=== PATIENT | female | born 1975 | race Caucasian/White ===

== ENCOUNTER 2018-01-09 14:06 | Emergency (ER) | payer BC ==
[2018-01-09 14:11] VITALS: BMI 32.5
[2018-01-09] MEDS ORDERED: TORADOL 30 MG VIAL IVP ONE (14:16)
[2018-01-09] MEDS ORDERED: DILAUDID INJ IVP ONE (14:16)
[2018-01-09] MEDS ORDERED: ZOFRAN INJ 4 MG VIAL IVP ONE (14:18)
[2018-01-09] MEDS ORDERED: DECADRON INJ IV ONE (14:21)
--- NOTE | 2018-01-09 14:21 | DR.FBACK ---
HPI - Time Seen Time seen: 14:20 - PCP Primary Care Physician: Noemy Platt - HPI Comment HPI Comment: hx back pain previously. had MRI 2016, I reviewed report. Spon onset severe low back pain today with rad down both legs. Was in PCP office 4 days ago, got steroid shot for same, unknown med or dose and office closed now. Rx'd ibuprofen and flexeril which has not helped. - Complaint Chief Complaint:: Patient c/o lower back pain that radiates down both legs. Patient states "Noemy told me I had a bad back and I have had xrays done here. I stood up alot this and Noemy gave me a steroid shot friday." Patient is unable to sit without grimacing Self Treatment fo Chief Complaint: Steroid shot friday - Reviewed Nurses Notes Review: Yes - Source History Provided: Patient - Mode of Arrival Mode of Arrival: Ambulatory - Timing Onset of Chief Complaint: 01/04/18 - Duration Duration: Since Onset - Location Back Pain Location: BACK, Lumbar Radiation To: Right, Left, Buttock, Thigh - Severity Severity: Severe - Quality Quality: Sharp - Context Onset: Spontaneous Circumstance: Unknown History of: Chronic Back Pain - Modifying Factors Worsened By: Movement, Walking PMH - PMH Past Medical History: Yes Past Medical History: Anxiety, Arthritis, Diabetes, GERD, Hypertension Past Surgical History: Yes Surgical History: 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, 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 - Family History History of Family Medical Conditions: Yes Family Medical History: Diabetes Mellitus, Hypertension - Social History Does patient currently use any type of tobacco product: No Have you used tobacco products in the last 12 months: No Type of Tobacco Use: None Does any household member use tobacco: No Alcohol Use: None Do you use any recreational Drugs:: No Lives With: Family Lives Where: Home - infectious screening In the last 2 months have you had wt loss of >10#?: NO Have you had fever, night sweats or hemotysis?: No Have you traveled outside the country in the last 6 months?: No Isolation: Standard ROS - Review of Systems Constitutional: No Symptoms Reported Eyes: No Symptoms Reported ENTM: No Symptoms Reported Respiratoy: No Symptoms Reported Cardiovascular: No Symptoms Reported Gastrointestinal/Abdominal: No Symptoms Reported Neurological: Problems Walking Musculoskeletal: Back Pain Integumentary: No Symptoms Reported Hematologic/Lymphatic: No Symptoms Reported Endocrine: No Symptoms Reported Psychiatric: No Symptoms Reported All Other Systems: Reviewed and Negative PE - Vitals Vital Signs: Pulse Resp BP BP BP Pulse Ox 01/09/18 15:06 153/79 01/09/18 14:41 177/103 01/09/18 14:07 112 H 22 230/125 100 06/28/16 12:00 148/90 148/90 06/28/16 00:00 88/50 - General Limitations: No Limitations General Appearance: Alert, In Distress (mild distress due to low back pain. Bp elevated on arrival) - Head Head Exam: Normal Inspection, Atraumatic, Normocephalic - Eyes Eye exam: Normal Appearance - ENT ENT Exam: Normal Exam - Chest Chest Inspection: Normal Inspection - Respiratory Respiratory Exam: Normal Lung Sounds Bilat Respiratory Exam: Bilateral Clear to Auscultation - Cardiovascular Cardiovascular Exam: Regular Rate, Normal Rhythm, Normal Heart Sounds - Abdominal Exam Abdominal Exam: Normal Inspection, Normal Bowel Sounds, Soft - Extremities Extremities Exam: Normal Inspection, Full ROM - Back Back Exam: Other (+TTP Lspine generally. SLR not done due to pt discomfort) - Neurological Neurological Exam: Alert, Oriented X3 - Psychiatric Psychiatric Exam: Normal Affect, Normal Mood - Skin Skin Exam: Warm, Dry, Normal Color ROR - XRAY XRAY Interpreted by: Radiologist XRAY Findings: CT Lspine no definitte acute - Diagnosis Discharge Problem: Sciatic leg pain - Discharge Plan Disposition: 01 HOME, SELF-CARE Condition: Stable Prescriptions: Hydrocodone-Acet 7.5 mg/325 mg [[place] 7.5/325 mg Tab] 1 tab PO Q6H PRN #15 tab PRN Reason: Pain - Follow ups/Referrals Follow ups/Referrals: NOEMY PLATT [Primary Care Provider] - 3 days - Instructions Instructions: Sciatica, Back Exercises, [id number] Additional Notes - Additional Notes Additional Notes: asked pt to f/u PCP re: repeat MRI vs myelogram. Will give pain control meds in ER incl more steroids. Symptoms classic for bilat sciatica. CT imaging today showed nothing acute. Some but incomplete relief with multiple pain meds. Pt agrees this just has to settle down. Will d/c home with pain meds, f/u PCP 01/12 for ortho referral.
[2018-01-09] MEDS ORDERED: DILAUDID INJ ONE (14:24)
[2018-01-09] MEDS ORDERED: ZOFRAN INJ 4 MG VIAL ONE (14:24)
[2018-01-09] MEDS ORDERED: TORADOL 30 MG VIAL ONE (14:24)
[2018-01-09] MEDS ORDERED: DECADRON INJ ONE (14:24)
[2018-01-09 15:06] VITALS: BP 153/79
--- NOTE | 2018-01-09 16:02 | CT ---
Indication: Back pain Exam: CT scan lumbar spine without contrast Technique: Axial spiral images were obtained from the T10 level through the lower sacrum and reconstr ucted in the axial plane at 2 mm intervals with coronal and sagittal multiplanar reconstructions perf ormed. Findings: The lumbar vertebra are well aligned. There is mild to moderate disc space narrowing throug hout with mild marginal osteophytes throughout. No fracture or subluxation is seen. The vertebral bod y height is well maintained throughout. There is mild narrowing along the right SI joint with mild sc lerosis along the adjacent right iliac wing . The lung bases are clear. There is a small central disc bulge at L5-S1. The neural foramina clear. The paravertebral soft tissues are normal. The gallbladde r has been removed. There is some ill-defined focal hyperdense calcific densities in the along the pa pillary regions of both kidneys . No hydronephrosis or renal masses are seen. There is mild scoliosis . There are mild hypertrophic changes of facets throughout with ligament flavum hypertrophy causing d iffuse mild spinal stenosis. No pars defects are seen. Impression: Mild to moderate degenerative disc changes throughout and mild scoliosis with no acute abnormality se en Small central disc bulge at L5-S1 Mild osteoarthritic changes of facets throughout causing diffuse mild spinal stenosis Questionable mild asymmetric sacroiliitis or osteoarthritis along the right SI joint. Recommend clini ruddy follow-up. 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 Recommend clinical follow-up paragraphs Reported By:
[2018-01-09] MEDS ORDERED: OFIRMEV IV 1000 MG VIAL 1,000 MG/100 ML VIAL IV STA (16:03)
== END 2018-01-09 17:44 | disposition home or self-care (01) ==
LOC: ER 14:16
DX: M54.42 Lumbago with sciatica, left side (principal); M51.36 Other intervertebral disc degeneration, lumbar region
CPT/HCPCS: 72131; 96365; 96374; 96375; 99282; 99283; A4222; J1100; J1170; J1885; J2405

== ENCOUNTER 2019-02-01 14:45 | Observation (INO) ==
[2019-02-01] MEDS ORDERED: APRESOLINE INJ 20 MG VIAL IVP PRN (15:39)
[2019-02-01 15:58] VITALS: BMI 34.0
[2019-02-01] MEDS ORDERED: LEVAQUIN PREMIX IV 750 MG 750 MG/150 ML BAG IV SCH (16:00)
[2019-02-01] MEDS: PULMICORT NEB TX 0.5 MG NEB SCH ×2 (16:00→22:30)
[2019-02-01 16:14] LABS: BASOPHILS % (AUTO) 0.4 % (0.2-1.0); EOSINOPHILS # (AUTO) 0.3 x10^3/uL (0.0-0.2); EOSINOPHILS % (AUTO) 2.4 % (0.9-2.9); LYMPHOCYTES % (AUTO) 17.3 % (21.0-51.0); MEAN CORPUSCULAR HEMOGLOBIN 28.3 pg (27.0-34.0); MEAN CORPUSCULAR HGB CONC 33.4 g/dL (33.0-35.0); MEAN CORPUSCULAR VOLUME 84.8 fL (80.0-100.0); MEAN PLATELET VOLUME 7.9 fL (7.4-11.0); MONOCYTES # (AUTO) 0.7 x10^3/uL (0.3-0.8); MONOCYTES % (AUTO) 5.8 % (0.0-13.0); NEUTROPHILS # (AUTO) 8.6 x10^3/uL (2.2-4.8); NEUTROPHILS % (AUTO) 74.1 % (42.0-75.0); PLATELET COUNT 283 X10^3/uL (150.0-450.0); RED BLOOD COUNT 4.95 X10^6/uL (3.5-5.4); RED CELL DISTRIBUTION WIDTH 15.1 % (11.6-16.5); WHITE BLOOD COUNT 11.6 X10^3/uL (3.6-10.0)
[2019-02-01] MEDS: ROBITUSSIN DM PO SCH ×2 (16:20→20:54)
[2019-02-01] MEDS: ROCEPHIN VIAL 1 GRAM IVP SCH (16:20)
[2019-02-01] MEDS: NS 1000 ML 1,000 ML IV SCH (16:20)
[2019-02-01] MEDS: SOLU-Medrol 125 MG VIAL IVP SCH ×2 (16:20→20:59)
[2019-02-01 16:37] LABS: ALANINE AMINOTRANSFERASE 83 Units/L (12-78); ALBUMIN 3.9 g/dL (3.4-5.0); ALKALINE PHOSPHATASE 102 Units/L (46-116); ASPARTATE AMINO TRANSFERASE 43 Units/L (15-37); BLOOD UREA NITROGEN 12 mg/dL (7-18); CALCIUM 9.3 mg/dL (8.5-10.1); CHLORIDE 101 mmol/L (98-107); CKMB % 0.9 % (<4); COR NA(FOR HYPERGLY) 138 mmol/L (136-145); CREATINE KINASE 118 Units/L (26-192); CREATINE KINASE MB < 1.0 ng/mL (0-4.0); CREATININE 0.81 mg/dL (0.55-1.02); MAGNESIUM 1.8 mg/dL (1.7-2.9); SODIUM 137 mmol/L (136-145); TOTAL PROTEIN 7.7 g/dL (6.4-8.2); TROPONIN I < 0.02 ng/mL (0-1.5); eGFR NON BLACK RACES > 60 (>60)
[2019-02-01] MEDS ORDERED: SALINE 3% 15 ML NEB TX NEB ONE (16:41)
[2019-02-01] MEDS: TUSSIONEX PENNKINETIC SUSP PO PRN (16:44)
--- NOTE | 2019-02-01 16:58 | DR.H&P ---
H&P - History & Physical for Day of: H&P Date: 02/01/19 - Chief Complaint Chief Complaint: SOB, CHEST PAIN, COUGH, "FEEL LIKE ELEPHANT IS SITTING ON MY CHEST" - History of Present Illness History of Present Illness: 43 [address] HWANG OFFICE WITH CO SICK WITH SOB FOR 2-3 WEEKS, HAS GRADUALLY WORSENED. PT CO ELEVATED BP AND HAS BEEN TAKING ALL PRESCRIPTION MEDICATION. PT HAS HOARSE VOICE WITH COUGH, "BRONCHITIS". PT HAS BEEN USING DUO NEBS AT HOME BUT CO FEELING LIKE SOMETHING IS SITTING ON HER CHEST. PT HAS HAD ELEVATED BLOOD PRESSURE, IN OFFICE 150/115 AND CO BOTH ARMS FEELING HEAVING, NUMBNESS IN HANDS THAT COMES AND GOES. PT HAS PMH OF DM, BS HAS BEEN CONTROLLED. PT ADMITTED FOR TREATMENT AND EVALUATION OF SOB, CP, BRONCHITIS. - Past Medical History Past Medical History: Anxiety, Arthritis, Diabetes, GERD, Hypertension - Past Surgical History Surgical History: 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, HEAD CHEF Surgery - Family History Family Medical History: Diabetes Mellitus, Hypertension - Social History Does patient currently use any type of tobacco product: No Have you used tobacco products in the last 12 months: No Type of Tobacco Use: Cigarettes Does any household member use tobacco: No Alcohol Use: None Drug Use: None - Medications Home Medications: No Known Drug Allergies Allergy (Verified 02/01/19 15:35) - Review of Systems Constitutional: Weakness, Malaise Eyes: No Symptoms Reported ENT: No Symptoms Reported Respiratory: Cough, Shortness of Breath, SOB with Excertion Cardiovascular: Chest Pain, Light Headedness Gastrointestinal: Nausea Genitourinary: No Symptoms Reported Musculoskeletal: Back Pain Skin: No Symptoms Reported Neurological: Weakness - Physical Exam Vital Signs: Temperature 98.6 F Pulse Rate [Left Brachial] 98 Respiratory Rate 20 Blood Pressure [Left Arm] 158/96 Blood Pressure [Right Arm] 88/50 Blood Pressure 153/79 O2 Sat by Pulse Oximetry 99 Oriented: Normal Eyes: Normal Ear: Normal Nose: Normal Throat: Normal Respiratory: Rhonchi Throughout, RLL Diminished, LLL Diminished Cardiovascular: Tachycardia : Normal Auscultation: Bowel Sounds: Normal Palpation: Normal Tenderness: Normal Skin: Decreased Turgur Musculoskeletal: Right, Left, Hand, Back:Lumbar, Sensory Deficit Psychiatric: Anxiety Affect: Anxious Speech Pattern: Clear, Appropriate - Assessment/Plan (1) Chest pain Status: Acute Plan: ADMIT SERIAL CE, EKG. BP AND BS CONTROL. CARDIAC MONITORING. SUPPLEMENTAL O2, PNEUMONIA PROTOCOL. PRN HYDRALAZINE, D DIMER (2) SOB (shortness of breath) Status: Acute (3) SOB (shortness of breath) on exertion Status: Acute (4) Hypertensive urgency Status: Acute (5) Diabetes Qualifiers: Diabetes mellitus type: type 2 Status: Chronic (6) Degenerative lumbar spinal stenosis Status: Chronic - Allergies Allergies/Adverse Reactions: Allergies Allergy/AdvReac Type Severity Reaction Status Date / Time No Known Drug Allergies Allergy Verified 02/01/19 15:35
--- NOTE | 2019-02-01 17:04 | RAD ---
History: Neck pain radiating into the upper extremity Exam: Five view cervical spine series Comparison: None Technique: AP, lateral, oblique and open-mouth views were obtained. Findings: There is mild disc space narrowing throughout. No fracture or subluxation is seen. The prevertebral soft tissues are normal. The atlantoaxial joint is intact. The neural foramina clear and the posterior elements are intact. IMPRESSION: Minimal degenerative disc changes throughout the lower cervical spine with no acute abnormality seen. Reported By:
--- NOTE | 2019-02-01 17:05 | RAD ---
History: Shortness of breath Exam: Chest x-ray Comparison: 06/25/2016 Technique: PA and lateral Findings: The heart is normal. The pulmonary vessels are normal . The lungs are mildly hyperinflated. No consolidation or effusion is seen. The bones are intact. IMPRESSION: Stable chest with no acute abnormality seen. Reported By:
--- NOTE | 2019-02-01 19:20 | CT ---
CT angiogram chest with contrast Indication: Cough and dyspnea Technique: Helical images through the chest after IV contrast. Coronal and sagittal reformats provided. MIP images provided Comparison: 06/25/2016 CT Findings: Limited images through the upper abdomen show no unexpected abnormality. Review of bone windows shows no destructive osseous lesion. Is Chest: Aortic arch branch vessels are patent. Heart size is normal. Pulmonary artery bolus timing is slightly suboptimal without large central or segmental pulmonary artery filling defect identified. Subsegmental vessels less well seen. There is no pneumothorax, effusion or consolidation. Right lower lobe calcified granuloma noted. Tiny left upper lobe 2 mm multi pulmonary nodule seen on axial image 24. Pleural based nodule seen on axial image 54 measures 2 mm. Similar 2 mm nodule on axial image 61 is pleural based and measures 2 mm. Impression: 1. Mildly limited study shows no large central or segmental pulmonary embolus. Subsegmental vessels less well evaluated. 2. Few small scattered 2 mm pulmonary nodules are probably granulomatous. The patient is high risk (i.e. Smoking history), per Fleischner criteria, 12 month follow-up should be considered. Reported By:
[2019-02-01 20:24] LABS: ABG BASE EXCESS -0.1 mmol/L (-2.0-2.0); ABG HCO3 23.9 mmol/L (22-26)
[2019-02-01 20:25] LABS: ABG ALLEN TEST POS
[2019-02-01] MEDS: HumuLIN R SUBCUT PRN (20:51)
[2019-02-01] MEDS: SNACK - Diabetic Appropriate PO SCH (20:54)
[2019-02-01] MEDS: TYLENOL 325 MG TAB PO PRN (20:55)
[2019-02-01] MEDS: AMBIEN PO PRN (20:55)
[2019-02-01] MEDS ORDERED: LEVSIN/MAALOX/LIDOC VISC PO ONE (21:00)
[2019-02-01 21:47] LABS: BILIRUBIN,URINE NEGATIVE (NEGATIVE); BLOOD/HEMOGLOBIN,URINE NEGATIVE (NEGATIVE); GLUCOSE, URINE NEGATIVE (NEGATIVE); KETONES,URINE NEGATIVE (NEGATIVE); LEUKOCYTE ESTERASE ,URINE NEGATIVE (NEGATIVE); NITRITES,URINE NEGATIVE (NEGATIVE); PROTEIN,URINE NEGATIVE (NEGATIVE); UROBILINOGEN,URINE NORMAL (NORMAL)
[2019-02-01 21:54] LABS: APPEARANCE,URINE CLEAR (CLEAR); COLOR,URINE YELLOW (YELLOW)
[2019-02-01 22:11] LABS: CKMB % 0.9 % (<4); CREATINE KINASE 110 Units/L (26-192); CREATINE KINASE MB < 1.0 ng/mL (0-4.0); TROPONIN I < 0.02 ng/mL (0-1.5)
[2019-02-01] MEDS: PROVENTIL NEB TX 0.083% 2.5MG/ 3ML NEB SCH (22:30)
[2019-02-02] MEDS: TUSSIONEX PENNKINETIC SUSP PO PRN ×2 (03:58→21:27)
[2019-02-02 04:10] LABS: BASOPHILS % (AUTO) 0.2 % (0.2-1.0); HEMATOCRIT 41.4 % (36.0-47.0); HEMOGLOBIN 13.4 g/dL (12.0-16.0); LYMPHOCYTES # (AUTO) 0.8 X10^3/uL (1.3-2.9); LYMPHOCYTES % (AUTO) 5.7 % (21.0-51.0); MEAN CORPUSCULAR HGB CONC 32.3 g/dL (33.0-35.0); MEAN CORPUSCULAR VOLUME 86.8 fL (80.0-100.0); MEAN PLATELET VOLUME 8.6 fL (7.4-11.0); MONOCYTES # (AUTO) 0.1 x10^3/uL (0.3-0.8); MONOCYTES % (AUTO) 1.1 % (0.0-13.0); NEUTROPHILS # (AUTO) 12.2 x10^3/uL (2.2-4.8); PLATELET COUNT 298 X10^3/uL (150.0-450.0); RED BLOOD COUNT 4.77 X10^6/uL (3.5-5.4); RED CELL DISTRIBUTION WIDTH 14.8 % (11.6-16.5); WHITE BLOOD COUNT 13.2 X10^3/uL (3.6-10.0)
[2019-02-02 04:27] LABS: ALANINE AMINOTRANSFERASE 76 Units/L (12-78); ALBUMIN 3.7 g/dL (3.4-5.0); ALKALINE PHOSPHATASE 104 Units/L (46-116); ASPARTATE AMINO TRANSFERASE 31 Units/L (15-37); BLOOD UREA NITROGEN 11 mg/dL (7-18); CALCIUM 8.9 mg/dL (8.5-10.1); CARBON DIOXIDE 21.7 mmol/L (21-32); CHLORIDE 98 mmol/L (98-107); COR NA(FOR HYPERGLY) 140 mmol/L (136-145); CREATINE KINASE 103 Units/L (26-192); CREATINE KINASE MB < 1.0 ng/mL (0-4.0); CREATININE 1.18 mg/dL (0.55-1.02); SODIUM 134 mmol/L (136-145); TOTAL PROTEIN 7.4 g/dL (6.4-8.2); TROPONIN I < 0.02 ng/mL (0-1.5); eGFR NON BLACK RACES 53 (>60)
[2019-02-02 04:45] LABS: BAND NEUTROPHILS % 4 % (0-10); PLATELET MORPHOLOGY COMMENT NORMAL (NORMAL)
[2019-02-02] MEDS: SOLU-Medrol 125 MG VIAL IVP SCH (05:29)
[2019-02-02] MEDS: NS 1000 ML 1,000 ML IV SCH ×3 (05:29→20:05)
[2019-02-02] MEDS: HumuLIN R SUBCUT PRN ×4 (05:33→21:30)
[2019-02-02] MEDS: TYLENOL 325 MG TAB PO PRN ×2 (06:21→16:45)
[2019-02-02] MEDS: PROVENTIL NEB TX 0.083% 2.5MG/ 3ML NEB SCH (08:29)
[2019-02-02] MEDS: PULMICORT NEB TX 0.5 MG NEB SCH ×2 (08:29→20:02)
[2019-02-02] MEDS: ROBITUSSIN DM PO SCH ×4 (09:02→21:27)
[2019-02-02] MEDS: LEVAQUIN PREMIX IV 500 MG 500 MG/100 ML BAG IV SCH (09:02)
[2019-02-02] MEDS: ROCEPHIN VIAL 1 GRAM IVP SCH (09:03)
[2019-02-02] MEDS: Atrovent NEB TX 0.02% NEB SCH ×3 (12:08→20:02)
[2019-02-02] MEDS: MUCOMYST 20% 200 MG/ML NEB SCH ×3 (12:09→20:02)
[2019-02-02] MEDS ORDERED: AMLODIPINE OLMESARTAN PO SCH (14:00)
[2019-02-02] MEDS ORDERED: HYDROCHLOROTHIAZIDE 12.5 MG PO SCH (14:00)
--- NOTE | 2019-02-02 14:02 | PCM.PROG ---
Progress Note - Progress Note for Day of Date of Exam: 02/02/19 - Subjective Subjective: 43 W[address] FROM [address] HWANG OFFICE ON 02/01 WITH CO CHEST PAIN/PRESSURE SOB, UPPER EXTREMITY PARESTHESIAS. PT WAS STARTED ON IV ATBX THERAPY, IV STEROIDS, PNEUMONIA PROTOCOL, PT REPORTS NOT SLEEPING ALL NIGHT DUE TO STEROIDS., HYPERGLYCEMIA THIS AM, D/C IV SOLU MEDROL, CONTINUE WITH SSI. PT HAD CTA RESULTING- Few small scattered 2 mm pulmonary nodules are probably granulomatous. DISCUSSED NEED FOR FOLLOW UP IMAGING. PT CO THICK YELLOW SPUTUM PRODUCTION. ADDED SMART VEST AND RESUMED HOME BP MEDICATION. CONTINUES TO HAVE EPISODES OF CHEST TIGHTNESS - Past Medical Family Social History Past Med/Fam/Surg Hx: No changes since H&P Allergies: Allergies No Known Drug Allergies Allergy (Verified 02/01/19 15:35) - Review of Systems ROS: No change since H&P - Vital Signs and I&O's Vital Signs: Temperature 97.8 F Pulse Rate [Left Brachial] 100 Pulse Rate 62 Respiratory Rate 20 Blood Pressure [Left Arm] 115/55 Blood Pressure [Right Arm] 88/50 Blood Pressure 153/79 O2 Sat by Pulse Oximetry 97 Intake and Output: Intake & Output 01/31/19 02/01/19 02/02/19 02/03/19 11:59 11:59 11:59 11:59 Intake Total 2388 / 2388 Balance 2388 / 2388 - Physical Exam Oriented: Normal Eyes: Normal Ear: Normal Nose: Normal Throat: Normal Respiratory: Diminished, Wheezes, Rhonchi Cardiovascular: Tachycardia : Normal Auscultation: Bowel Sounds: Normal Tenderness: Normal Skin: Decreased Turgur Musculoskeletal: Right, Left, Hand, Back:Lumbar, Sensory Deficit Psychiatric: Anxiety Affect: Anxious Speech Pattern: Clear, Appropriate - Laboratory and Diagnostics Result Diagrams: 02/02/19 03:50 02/02/19 03:50 Labs: 02/01/19 17:50 Sputum - Expectorated Sputum Sputum Culture - Preliminary 02/01/19 17:50 Sputum - Expectorated Sputum - Final Laboratory WBC 13.2 X10^3/uL (3.6-10.0) H 02/02/19 03:50 RBC 4.77 X10^6/uL (3.5-5.4) 02/02/19 03:50 Hgb 13.4 g/dL (12.0-16.0) 02/02/19 03:50 Hct 41.4 % (36.0-47.0) 02/02/19 03:50 MCV 86.8 fL (80.0-100.0) 02/02/19 03:50 MCH 28.0 pg (27.0-34.0) 02/02/19 03:50 MCHC 32.3 g/dL (33.0-35.0) L 02/02/19 03:50 RDW 14.8 % (11.6-16.5) 02/02/19 03:50 Plt Count 298 X10^3/uL (150.0-450.0) 02/02/19 03:50 Plt Count Comment Adequate (ADEQUATE) 02/02/19 03:50 MPV 8.6 fL (7.4-11.0) 02/02/19 03:50 Neut % (Auto) 93.0 % (42.0-75.0) H 02/02/19 03:50 Lymph % (Auto) 5.7 % (21.0-51.0) L 02/02/19 03:50 Cotton % (Auto) 1.1 % (0.0-13.0) 02/02/19 03:50 Eos % (Auto) 0.0 % (0.9-2.9) L 02/02/19 03:50 Baso % (Auto) 0.2 % (0.2-1.0) 02/02/19 03:50 Neut # (Auto) 12.2 x10^3/uL (2.2-4.8) H 02/02/19 03:50 Lymph # (Auto) 0.8 X10^3/uL (1.3-2.9) L 02/02/19 03:50 Cotton # (Auto) 0.1 x10^3/uL (0.3-0.8) L 02/02/19 03:50 Eos # (Auto) 0.0 x10^3/uL (0.0-0.2) 02/02/19 03:50 Baso # (Auto) 0.0 X10^3/uL (0.0-0.1) 02/02/19 03:50 Absolute Nucleated RBC 0.0 /100WBC 02/02/19 03:50 Total Counted 100 02/02/19 03:50 Neutrophils % (Manual) 86 % (39-76) H 02/02/19 03:50 Band Neutrophils % 4 % (0-10) 02/02/19 03:50 Lymphocytes % (Manual) 8 % (13-43) L 02/02/19 03:50 Monocytes % (Manual) 1 % (4-9) L 02/02/19 03:50 Atypical Lymphocytes 1 02/02/19 03:50 Plt Morphology Comment Normal (NORMAL) 02/02/19 03:50 RBC Morphology Normal (NORMAL) 02/02/19 03:50 D-Dimer 421 ng/mL (0-400) H* 02/01/19 15:51 Sample Site Rrad 02/01/19 20:15 ABG pH 7.430 (7.35-7.45) 02/01/19 20:15 ABG pCO2 36.0 mmHg (35.0-45.0) 02/01/19 20:15 ABG pO2 73.0 mmHg (80.0-100.0) L 02/01/19 20:15 ABG HCO3 23.9 mmol/L (22-26) 02/01/19 20:15 ABG O2 Saturation 95.0 % (90-100) 02/01/19 20:15 ABG Base Excess -0.1 mmol/L (-2.0-2.0) 02/01/19 20:15 Bruno Test Pos 02/01/19 20:15 A-a Gradient 32.0 mmHg 02/01/19 20:15 FiO2 21.0 02/01/19 20:15 Blood Gas Comments Pt crys well elj 02/01/19 20:15 Sodium 134 mmol/L (136-145) L 02/02/19 03:50 Corrected Sodium 140 mmol/L (136-145) 02/02/19 03:50 Potassium 3.8 mmol/L (3.5-5.1) 02/02/19 03:50 Chloride 98 mmol/L (98-107) 02/02/19 03:50 Carbon Dioxide 21.7 mmol/L (21-32) 02/02/19 03:50 BUN 11 mg/dL (7-18) 02/02/19 03:50 Creatinine 1.18 mg/dL (0.55-1.02) H 02/02/19 03:50 Est GFR (MDRD) Af Amer > 60 (>60) 02/02/19 03:50 Est GFR (MDRD) Non-Af 53 (>60) L 02/02/19 03:50 Glucose 347 mg/dL (65-99) H 02/02/19 03:50 Calcium 8.9 mg/dL (8.5-10.1) 02/02/19 03:50 Corrected Calcium TNP 02/02/19 03:50 Magnesium 1.8 mg/dL (1.7-2.9) 02/01/19 15:51 Total Bilirubin 0.40 mg/dL (0.2-1.0) 02/02/19 03:50 AST 31 Units/L (15-37) 02/02/19 03:50 ALT 76 Units/L (12-78) 02/02/19 03:50 Alkaline Phosphatase 104 Units/L (46-116) 02/02/19 03:50 Creatine Kinase 103 Units/L (26-192) 02/02/19 03:50 CK-MB (CK-2) < 1.0 ng/mL (0-4.0) 02/02/19 03:50 CK/CKMB % Calc 1.0 % (<4) 02/02/19 03:50 Troponin I < 0.02 ng/mL (0-1.5) 02/02/19 03:50 Total Protein 7.4 g/dL (6.4-8.2) 02/02/19 03:50 Albumin 3.7 g/dL (3.4-5.0) 02/02/19 03:50 Globulin 3.7 g/dL (2.5-4.5) 02/02/19 03:50 Albumin/Globulin Ratio 1.0 Ratio (1.1-2.1) L 02/02/19 03:50 Specimen Type Clean catch urine 02/01/19 21:40 Urine Color Yellow (YELLOW) 02/01/19 21:40 Urine Appearance Clear (CLEAR) 02/01/19 21:40 Urine pH 6.0 (5.0 - 8.0) 02/01/19 21:40 Ur Specific [place] 1.010 (1.000-1.030) 02/01/19 21:40 Urine Protein Negative (NEGATIVE) 02/01/19 21:40 Urine Glucose (UA) Negative (NEGATIVE) 02/01/19 21:40 Urine Ketones Negative (NEGATIVE) 02/01/19 21:40 Urine Occult Blood Negative (NEGATIVE) 02/01/19 21:40 Urine Nitrite Negative (NEGATIVE) 02/01/19 21:40 Urine Bilirubin Negative (NEGATIVE) 02/01/19 21:40 Urine Urobilinogen Normal (NORMAL) 02/01/19 21:40 Ur Leukocyte Esterase Negative (NEGATIVE) 02/01/19 21:40 - Plan (1) Acute bronchitis Status: Acute Plan: IV ATBX, DUO NEBS. SMART VEST. SUPPLEMENTAL O2 (2) Chest pain Status: Acute Plan: SERIAL CE, EKG ON ADMISSION. BP AND BS CONTROL. CARDIAC MONITORING. SUPPLEMENTAL O2, PNEUMONIA PROTOCOL. PRN HYDRALAZINE, D DIMER ELEVATED, CTA NEGAIVE FOR PE (3) SOB (shortness of breath) Status: Acute (4) SOB (shortness of breath) on exertion Status: Acute (5) Hypertensive urgency Status: Acute (6) Diabetes Status: Chronic Qualifiers: Diabetes mellitus type: type 2 (7) Degenerative lumbar spinal stenosis Status: Chronic
[2019-02-02] MEDS: XANAX PO PRN (14:21)
[2019-02-02] MEDS: PATIENT'S HOME MEDICATION PO SCH (15:22)
[2019-02-02] MEDS: AMBIEN PO PRN (20:00)
[2019-02-02] MEDS ORDERED: ZANAFLEX PO SCH (21:00)
[2019-02-02] MEDS: SNACK - Diabetic Appropriate PO SCH (21:26)
[2019-02-02] MEDS: PATIENT'S HOME MEDICATION PO PRN (21:27)
[2019-02-03] MEDS: LEVSIN/MAALOX/LIDOC VISC PO PRN ×2 (04:54→21:49)
[2019-02-03] MEDS ORDERED: LEVSIN/MAALOX/LIDOC VISC ONE (04:55)
[2019-02-03 05:28] LABS: BASOPHILS % (AUTO) 0.2 % (0.2-1.0); HEMATOCRIT 35.3 % (36.0-47.0); HEMOGLOBIN 11.6 g/dL (12.0-16.0); LYMPHOCYTES # (AUTO) 2.2 X10^3/uL (1.3-2.9); LYMPHOCYTES % (AUTO) 13.9 % (21.0-51.0); MEAN CORPUSCULAR HEMOGLOBIN 28.3 pg (27.0-34.0); MEAN CORPUSCULAR HGB CONC 32.9 g/dL (33.0-35.0); MEAN PLATELET VOLUME 8.6 fL (7.4-11.0); MONOCYTES # (AUTO) 0.8 x10^3/uL (0.3-0.8); MONOCYTES % (AUTO) 5.3 % (0.0-13.0); NEUTROPHILS # (AUTO) 12.6 x10^3/uL (2.2-4.8); NEUTROPHILS % (AUTO) 80.6 % (42.0-75.0); PLATELET COUNT 268 X10^3/uL (150.0-450.0); RED CELL DISTRIBUTION WIDTH 15.3 % (11.6-16.5); WHITE BLOOD COUNT 15.7 X10^3/uL (3.6-10.0)
[2019-02-03 05:40] LABS: ALANINE AMINOTRANSFERASE 45 Units/L (12-78); ALKALINE PHOSPHATASE 74 Units/L (46-116); ASPARTATE AMINO TRANSFERASE 16 Units/L (15-37); BLOOD UREA NITROGEN 17 mg/dL (7-18); CALCIUM 8.4 mg/dL (8.5-10.1); CHLORIDE 106 mmol/L (98-107); COR CA(FOR HYPOALB) 9.2 mg/dL (8.5-10.1); COR NA(FOR HYPERGLY) 141 mmol/L (136-145); CREATININE 0.85 mg/dL (0.55-1.02); SODIUM 139 mmol/L (136-145); TOTAL PROTEIN 6.1 g/dL (6.4-8.2); eGFR NON BLACK RACES > 60 (>60)
[2019-02-03] MEDS: PATIENT'S HOME MEDICATION PO SCH ×2 (08:21→15:29)
[2019-02-03] MEDS: LEVAQUIN PREMIX IV 500 MG 500 MG/100 ML BAG IV SCH (08:21)
[2019-02-03] MEDS: NS 1000 ML 1,000 ML IV SCH ×3 (08:21→21:49)
[2019-02-03] MEDS: ROCEPHIN VIAL 1 GRAM IVP SCH (08:21)
[2019-02-03] MEDS: ROBITUSSIN DM PO SCH ×4 (08:21→21:49)
[2019-02-03] MEDS: PULMICORT NEB TX 0.5 MG NEB SCH ×2 (08:26→20:19)
[2019-02-03] MEDS: MUCOMYST 20% 200 MG/ML NEB SCH ×4 (08:26→20:19)
[2019-02-03] MEDS: Atrovent NEB TX 0.02% NEB SCH ×4 (08:26→20:19)
[2019-02-03] MEDS ORDERED: LASIX IVP NR (09:37)
--- NOTE | 2019-02-03 09:57 | RAD ---
HISTORY: Pneumonia Study: Chest PA and lateral Comparison: 02/01/2019 Findings: The heart is within normal limits in size. The zechariah are normal. The lungs are well inflated and free of acute infiltrates. No pleural effusions are identified. The bony thorax is unremarkable. IMPRESSION: Lungs remain clear Reported By:
[2019-02-03] MEDS ORDERED: K-DUR TAB 20 MEQ PO SCH (10:00)
[2019-02-03] MEDS: TUSSIONEX PENNKINETIC SUSP PO PRN ×2 (10:07→21:51)
[2019-02-03] MEDS: XANAX PO PRN ×2 (10:07→21:51)
[2019-02-03] MEDS: PROTONIX INJ 40 MG VIAL IVP SCH (11:11)
[2019-02-03] MEDS: NORCO 7.5/325 MG TAB PO PRN (11:28)
[2019-02-03] MEDS: HumuLIN R SUBCUT PRN ×2 (17:13→21:50)
[2019-02-03] MEDS: PATIENT'S HOME MEDICATION PO PRN (20:30)
[2019-02-03] MEDS: SNACK - Diabetic Appropriate PO SCH (20:35)
[2019-02-03] MEDS ORDERED: COLACE CAP 100 MG PO SCH (21:00)
[2019-02-03] MEDS: AMBIEN PO PRN (21:49)
[2019-02-04] MEDS: NS 1000 ML 1,000 ML IV SCH (01:02)
[2019-02-04 05:12] LABS: BASOPHILS % (AUTO) 0.3 % (0.2-1.0); EOSINOPHILS # (AUTO) 0.1 x10^3/uL (0.0-0.2); EOSINOPHILS % (AUTO) 1.2 % (0.9-2.9); HEMATOCRIT 36.6 % (36.0-47.0); HEMOGLOBIN 12.1 g/dL (12.0-16.0); LYMPHOCYTES # (AUTO) 3.2 X10^3/uL (1.3-2.9); LYMPHOCYTES % (AUTO) 36.4 % (21.0-51.0); MEAN CORPUSCULAR HEMOGLOBIN 28.3 pg (27.0-34.0); MEAN CORPUSCULAR HGB CONC 33.1 g/dL (33.0-35.0); MEAN CORPUSCULAR VOLUME 85.6 fL (80.0-100.0); MEAN PLATELET VOLUME 8.1 fL (7.4-11.0); MONOCYTES # (AUTO) 0.6 x10^3/uL (0.3-0.8); MONOCYTES % (AUTO) 6.4 % (0.0-13.0); NEUTROPHILS # (AUTO) 4.8 x10^3/uL (2.2-4.8); NEUTROPHILS % (AUTO) 55.7 % (42.0-75.0); PLATELET COUNT 262 X10^3/uL (150.0-450.0); RED BLOOD COUNT 4.28 X10^6/uL (3.5-5.4); RED CELL DISTRIBUTION WIDTH 15.1 % (11.6-16.5); WHITE BLOOD COUNT 8.7 X10^3/uL (3.6-10.0)
[2019-02-04] MEDS: NORCO 7.5/325 MG TAB PO PRN (05:15)
[2019-02-04 05:25] LABS: ALANINE AMINOTRANSFERASE 46 Units/L (12-78); ALKALINE PHOSPHATASE 70 Units/L (46-116); ASPARTATE AMINO TRANSFERASE 20 Units/L (15-37); BLOOD UREA NITROGEN 17 mg/dL (7-18); CALCIUM 8.1 mg/dL (8.5-10.1); CARBON DIOXIDE 27.4 mmol/L (21-32); CHLORIDE 104 mmol/L (98-107); COR CA(FOR HYPOALB) 8.9 mg/dL (8.5-10.1); COR NA(FOR HYPERGLY) 139 mmol/L (136-145); CREATININE 0.78 mg/dL (0.55-1.02); SODIUM 139 mmol/L (136-145); TOTAL PROTEIN 5.8 g/dL (6.4-8.2); eGFR NON BLACK RACES > 60 (>60)
[2019-02-04] MEDS ORDERED: POTASSIUM CHLORIDE LIQ 20 MEQ UDC PO PRN (05:49)
[2019-02-04] MEDS ORDERED: K-RIDER 10 MEQ/NS 100 ML 10 MEQ/100 ML BAG IV PRN (05:49)
[2019-02-04] MEDS ORDERED: KLOR-CON PO PRN (05:49)
[2019-02-04] MEDS ORDERED: K-DUR TAB 20 MEQ PO PRN (05:49)
[2019-02-04] MEDS ORDERED: MICRO K EXTEN CAP 10 MEQ PO PRN (05:49)
[2019-02-04] MEDS ORDERED: POTASSIUM CHL 60 MEQ/NS 0.45% 500 ML IV PRN (05:49)
[2019-02-04] MEDS ORDERED: POTASSIUM CHL 40 MEQ/NS 0.45% 500 ML IV PRN (05:49)
[2019-02-04] MEDS: MAGNESIUM SULFATE 1 GRAM/100 mL PREMIX 1 GM/100 ML BAG IV PRN ×2 (06:32→08:22)
[2019-02-04] MEDS: XANAX PO PRN (08:19)
[2019-02-04] MEDS: ROBITUSSIN DM PO SCH (08:19)
[2019-02-04] MEDS: TUSSIONEX PENNKINETIC SUSP PO PRN (08:19)
[2019-02-04] MEDS: PATIENT'S HOME MEDICATION PO SCH (08:20)
[2019-02-04] MEDS: ROCEPHIN VIAL 1 GRAM IVP SCH (08:22)
[2019-02-04] MEDS: PROTONIX INJ 40 MG VIAL IVP SCH (08:22)
[2019-02-04] MEDS: LEVAQUIN PREMIX IV 500 MG 500 MG/100 ML BAG IV SCH (08:22)
[2019-02-04 08:37] VITALS: BP 162/70
[2019-02-04] MEDS: MUCOMYST 20% 200 MG/ML NEB SCH (09:16)
[2019-02-04] MEDS: Atrovent NEB TX 0.02% NEB SCH (09:16)
[2019-02-04] MEDS: PULMICORT NEB TX 0.5 MG NEB SCH (09:16)
== END 2019-02-04 11:45 | disposition home or self-care (01) ==
LOC: MED/SURG
PROVIDERS: ADMIT Internal Medicine; ATTEND Internal Medicine
DX: R07.89 Other chest pain; J20.9 Acute bronchitis, unspecified; M48.061 Spinal stenosis, lumbar region without neurogenic claudication; R06.02 Shortness of breath; K21.9 Gastro-esophageal reflux disease without esophagitis; R91.1 Solitary pulmonary nodule; M54.2 Cervicalgia; I16.0 Hypertensive urgency; I10 Essential (primary) hypertension; E11.65 Type 2 diabetes mellitus with hyperglycemia
CPT/HCPCS: 36415; 36600; 71020; 71046; 71275; 72050; 80053; 81003; 82550; 82553; 82803; 83735; 84484; 85025; 85378; 87040; 87070; 87205; 93005; 94640; 94669; 94760; 96367; 96372; 96374; A4222; C9113; G0378; J0696; J1815; J1940; J1956; J2930; J3475; J3490; J7030; J7613; J7626; J7644

== ENCOUNTER 2021-02-27 04:06 | Observation (INO) ==
[2021-02-27 04:28] VITALS: BMI 34.3
[2021-02-27] MEDS ORDERED: NITRO-BID OINT 2% UD (E.R. USE ONLY) TD ONE (04:34)
[2021-02-27] MEDS ORDERED: MORPHINE SULFATE INJ 2 MG INJ IVP ONE ×2 (04:34→05:52)
[2021-02-27] MEDS ORDERED: ZOFRAN INJ 4 MG VIAL IVP ONE ×2 (04:34→06:07)
[2021-02-27] MEDS ORDERED: ZOFRAN INJ 4 MG VIAL ONE ×3 (04:45→12:55)
[2021-02-27] MEDS ORDERED: MORPHINE SULFATE INJ 2 MG INJ ONE ×3 (04:45→12:55)
[2021-02-27] MEDS ORDERED: NITRO-BID OINT 2% UD (E.R. USE ONLY) ONE (04:45)
[2021-02-27] MEDS ORDERED: ASPIRIN 81 MG CHEWTAB ONE (04:47)
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
[2021-02-27] MEDS: ASPIRIN 81 MG CHEWTAB PO SCH ×2 (04:51→15:10)
[2021-02-27 05:00] LABS: BASOPHILS # (AUTO) 0.1 X10^3/uL (0.0-0.1); EOSINOPHILS # (AUTO) 0.2 x10^3/uL (0.0-0.2); EOSINOPHILS % (AUTO) 1.6 % (0.9-2.9); HEMATOCRIT 40.7 % (36.0-47.0); HEMOGLOBIN 13.9 g/dL (12.0-16.0); LYMPHOCYTES # (AUTO) 3.1 X10^3/uL (1.3-2.9); LYMPHOCYTES % (AUTO) 27.6 % (21.0-51.0); MEAN CORPUSCULAR HGB CONC 34.1 g/dL (33.0-35.0); MEAN CORPUSCULAR VOLUME 87.8 fL (80.0-100.0); MEAN PLATELET VOLUME 8.2 fL (7.4-11.0); MONOCYTES # (AUTO) 0.6 x10^3/uL (0.3-0.8); MONOCYTES % (AUTO) 5.3 % (0.0-13.0); NEUTROPHILS # (AUTO) 7.3 x10^3/uL (2.2-4.8); NEUTROPHILS % (AUTO) 64.5 % (42.0-75.0); PLATELET COUNT 292 X10^3/uL (150.0-450.0); RED BLOOD COUNT 4.63 X10^6/uL (3.5-5.4); RED CELL DISTRIBUTION WIDTH 12.7 % (11.6-16.5); WHITE BLOOD COUNT 11.3 X10^3/uL (3.6-10.0)
[2021-02-27 05:19] LABS: ALANINE AMINOTRANSFERASE 70 Units/L (12-78); ALBUMIN 3.3 g/dL (3.4-5.0); ALKALINE PHOSPHATASE 91 Units/L (46-116); ASPARTATE AMINO TRANSFERASE 41 Units/L (15-37); BLOOD UREA NITROGEN 14 mg/dL (7-18); CALCIUM 8.5 mg/dL (8.5-10.1); CARBON DIOXIDE 25.5 mmol/L (21-32); CHLORIDE 103 mmol/L (98-107); COR CA(FOR HYPOALB) 9.1 mg/dL (8.5-10.1); COR NA(FOR HYPERGLY) 140 mmol/L (136-145); CREATININE 0.72 mg/dL (0.55-1.02); SODIUM 138 mmol/L (136-145); TOTAL PROTEIN 6.7 g/dL (6.4-8.2); eGFR NON BLACK RACES > 60 (>60)
[2021-02-27 05:20] LABS: CREATINE KINASE 99 Units/L (26-192); CREATINE KINASE MB < 1.0 ng/mL (0-4.0); TROPONIN I < 0.02 ng/mL (0-1.5)
--- NOTE | 2021-02-27 05:40 | RAD ---
HISTORYPT C/O LEFT SIDED CHEST PAINSTUDYCHEST, 1 [id number] trachea is midline. The cardiac silhouette is unremarkable . The lungs are clear without focal infiltrate or effusion. Pulmonary vasculature within normal limits. No pneumothorax. The bony thorax is unremarkable.IMPRESSIONNormal chestElectronically signed by: Antonio Ochoa (Feb 27, 2021 05:37:32)
[2021-02-27] MEDS ORDERED: LEVSIN/MAALOX/LIDOC VISC PO ONE (06:11)
[2021-02-27] MEDS ORDERED: LEVSIN/MAALOX/LIDOC VISC ONE (06:13)
[2021-02-27] MEDS ORDERED: TYLENOL 500 MG TAB EXTRA STRENGTH PO STA (10:05)
[2021-02-27] MEDS ORDERED: TYLENOL 500 MG TAB EXTRA STRENGTH PO ONE (10:11)
[2021-02-27 10:29] LABS: CKMB % 1.1 % (<4); CREATINE KINASE 89 Units/L (26-192); CREATINE KINASE MB < 1.0 ng/mL (0-4.0); TROPONIN I < 0.02 ng/mL (0-1.5)
[2021-02-27] MEDS ORDERED: MORPHINE SULFATE INJ 2 MG INJ IVP PRN (12:30)
[2021-02-27] MEDS ORDERED: NITROSTAT SL PRN (12:30)
[2021-02-27] MEDS ORDERED: ZOFRAN INJ 4 MG VIAL IVP PRN (12:50)
[2021-02-27] MEDS ORDERED: NS 100 ML IV 100 ML IV ONE (13:20)
[2021-02-27] MEDS: NS 1000 ML 1,000 ML IV SCH (15:15)
--- NOTE | 2021-02-27 15:33 | CT ---
HISTORYCHEST PAINSTUDYCTA CHESTCOMPARISONAunew me[facility] rehabilitation centert 2018.TECHNIQUEMultiple axial images of the chest were obtained from the thoracic inlet to the upper abdomen after the administration of IV contrast. 3D reconstructions utilizing axial MIPS imaging was performed and reviewed. Dose reduction techniques including Automated Exposure Control (AEC) and adjustment of mA and kV were utilized.FINDINGSVASCULAR: Normal opacification of the pulmonary arterial vasculature without evidence of pulmonary embolism. Normal opacification of the aorta without evidence of dissection or aneurysm.MEDIASTINUM: The heart and pericardium are normal. The thyroid is normal.LYMPH NODES: No abnormality pathologic enlargement.AIRWAYS/LUNGS/PLEURA: No focal consolidation or pulmonary edema. No pneumothorax or large pleural effusion.VISUALIZED ABDOMEN: No acute abnormality.BONES/SOFT TISSUES: No acute abnormality.IMPRESSIONNo significant abnormality.Electronically signed by: Tim Johnson (Feb 27, 2021 15:30:48)
[2021-02-27] MEDS ORDERED: TYLENOL 325 MG TAB PO PRN (15:35)
--- NOTE | 2021-02-27 17:08 | DR.H&P ---
H&P - History & Physical for Day of: H&P Date: 02/27/21 - Chief Complaint Chief Complaint: CHEST PAIN, HIGH BLOOD PRESSURE - History of Present Illness History of Present Illness: PT IS 45 WF WITH HX OF HTN AND DM. PT WAS ER ADMISSION AFTER PRESENTING WITH CO LEFT SIDE CHEST PAIN AND ELEVATED BLOOD PRESSURE. PT REPORTS SHE DID MISS HER PM BP MEDICATION, BUT NORMALLY TAKES ON ROUTINE BASIS WITH BP USUALLY CONTROLLED. PT HAS PMH OF C SPINE AND L SPINE DDD, DM AND HTN. PT REPORTS SHE HAD HER GALLBLADDER REMOVED AND DENIES ANY FEVER OR FLU LIKE SYMPTOMS. PT ADMITTED FOR TREATMENT OF HYPERTENSIVE URGENCY AND CHEST PAIN EVALUATION. 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 - Family History Family Medical History: Diabetes Mellitus, Hypertension - Social History Does patient currently use any type of tobacco product: No Have you used tobacco products in the last 12 months: No Type of Tobacco Use: None Does any household member use tobacco: No Alcohol Use: None Drug Use: None - Medications Home Medications: No Known Drug Allergies Allergy (Unverified 02/27/21 04:29) CONTINUE taking the following medications alprazolam 1 mg PO DAILY PRN 02/27/21 [History] cyanocobalamin (vitamin B-12) 1,000 mcg SUBCUT Q2W 02/27/21 [History] metoprolol succinate 50 mg PO DAILY 02/27/21 [History] gyabodokjr-sptbtkoec-mkmwvhjrq 1 tab PO DAILY 02/27/21 [History] ondansetron HCl 8 mg PO Q8H PRN 02/27/21 [History] - Review of Systems Constitutional: denies: Fever, Chills Eyes: No Symptoms Reported ENT: No Symptoms Reported Respiratory: SOB with Excertion Cardiovascular: Chest Pain Gastrointestinal: Nausea Genitourinary: No Symptoms Reported Musculoskeletal: Back Pain, Neck Pain Skin: No Symptoms Reported Neurological: No Symptoms Reported - Physical Exam Vital Signs: Temperature 98.3 F Pulse Rate [Right Brachial] 74 Pulse Rate 72 Respiratory Rate 20 Blood Pressure [Left Arm] 141/96 Blood Pressure [Right Arm] 120/68 Blood Pressure 130/88 O2 Sat by Pulse Oximetry 95 Oriented: Normal Eyes: Normal Ear: Normal Nose: Normal Throat: Normal Respiratory: RLL Diminished, LLL Diminished Cardiovascular: Normal. negative: Edema : Normal Auscultation: Bowel Sounds: Normal Palpation: Normal Tenderness: Normal Skin: Normal Musculoskeletal: Back:Lumbar, Tender (C SPINE TENDERNESS) Psychiatric: Anxiety Affect: Anxious Speech Pattern: Clear, Appropriate - Assessment/Plan (1) Hypertensive urgency Status: Acute Plan: ADMIT, BP CONTROL. SERIAL CE AND EKG. COVID 19 SWAB ON ADMISSION. CXR ON ADMISSION. BS CONTROL, STRICT I&OS (2) Chest pain Status: Acute (3) Diabetes Qualifiers: Diabetes mellitus type: type 2 Status: Chronic (4) Anxiety Status: Chronic (5) GERD with esophagitis Status: Acute (6) SOB (shortness of breath) Status: Acute - Allergies Allergies/Adverse Reactions: Allergies Allergy/AdvReac Type Severity Reaction Status Date / Time No Known Drug Allergies Allergy Unverified 02/27/21 04:29
[2021-02-27 17:09] LABS: CKMB % 1.4 % (<4); CREATINE KINASE 73 Units/L (26-192); CREATINE KINASE MB < 1.0 ng/mL (0-4.0); TROPONIN I < 0.02 ng/mL (0-1.5)
[2021-02-27] MEDS: NORCO 7.5/325 MG TAB PO PRN (17:56)
[2021-02-27] MEDS: HumuLIN R SUBCUT PRN (20:47)
[2021-02-27] MEDS: PROTONIX INJ 40 MG VIAL IVP SCH (20:47)
[2021-02-27] MEDS: XANAX PO PRN (20:48)
[2021-02-27 23:31] LABS: CREATINE KINASE 102 Units/L (26-192); CREATINE KINASE MB < 1.0 ng/mL (0-4.0); TROPONIN I < 0.02 ng/mL (0-1.5)
[2021-02-28] MEDS: NS 1000 ML 1,000 ML IV SCH ×3 (02:04→20:11)
[2021-02-28 05:28] LABS: BASOPHILS # (AUTO) 0.1 X10^3/uL (0.0-0.1); BASOPHILS % (AUTO) 0.6 % (0.2-1.0); EOSINOPHILS # (AUTO) 0.2 x10^3/uL (0.0-0.2); EOSINOPHILS % (AUTO) 1.9 % (0.9-2.9); HEMATOCRIT 39.2 % (36.0-47.0); HEMOGLOBIN 13.5 g/dL (12.0-16.0); LYMPHOCYTES # (AUTO) 2.6 X10^3/uL (1.3-2.9); LYMPHOCYTES % (AUTO) 25.2 % (21.0-51.0); MEAN CORPUSCULAR HEMOGLOBIN 30.3 pg (27.0-34.0); MEAN CORPUSCULAR HGB CONC 34.5 g/dL (33.0-35.0); MEAN CORPUSCULAR VOLUME 87.8 fL (80.0-100.0); MEAN PLATELET VOLUME 8.2 fL (7.4-11.0); MONOCYTES # (AUTO) 0.5 x10^3/uL (0.3-0.8); MONOCYTES % (AUTO) 4.8 % (0.0-13.0); NEUTROPHILS # (AUTO) 6.9 x10^3/uL (2.2-4.8); NEUTROPHILS % (AUTO) 67.5 % (42.0-75.0); PLATELET COUNT 253 X10^3/uL (150.0-450.0); RED BLOOD COUNT 4.46 X10^6/uL (3.5-5.4); RED CELL DISTRIBUTION WIDTH 12.9 % (11.6-16.5); WHITE BLOOD COUNT 10.2 X10^3/uL (3.6-10.0)
[2021-02-28 05:59] LABS: ALANINE AMINOTRANSFERASE 58 Units/L (12-78); ALBUMIN 2.9 g/dL (3.4-5.0); ALKALINE PHOSPHATASE 79 Units/L (46-116); ASPARTATE AMINO TRANSFERASE 33 Units/L (15-37); BLOOD UREA NITROGEN 8 mg/dL (7-18); CALCIUM 8.4 mg/dL (8.5-10.1); CARBON DIOXIDE 25.1 mmol/L (21-32); CHLORIDE 105 mmol/L (98-107); CHOL/HDL RATIO 6.1 (0.0-5.0); CHOLESTEROL 190 mg/dL (0-200); CKMB % 1.5 % (<4); COR CA(FOR HYPOALB) 9.3 mg/dL (8.5-10.1); COR NA(FOR HYPERGLY) 139 mmol/L (136-145); CREATINE KINASE 66 Units/L (26-192); CREATINE KINASE MB < 1.0 ng/mL (0-4.0); CREATININE 0.66 mg/dL (0.55-1.02); HDL CHOLESTEROL 31 mg/dL (40-60); SODIUM 138 mmol/L (136-145); TOTAL PROTEIN 5.9 g/dL (6.4-8.2); TRIGLYCERIDES 268 mg/dL (0-150); TROPONIN I < 0.02 ng/mL (0-1.5); eGFR NON BLACK RACES > 60 (>60)
[2021-02-28] MEDS ORDERED: PROTONIX TAB 40 MG PO SCH (09:00)
[2021-02-28] MEDS ORDERED: HYDROCHLOROTHIAZIDE 12.5 MG CAP PO SCH (09:00)
[2021-02-28] MEDS ORDERED: PROTONIX INJ 40 MG VIAL IVP SCH (09:00)
[2021-02-28] MEDS: ASPIRIN PO SCH (09:15)
[2021-02-28] MEDS: NORVASC TAB 5 MG PO SCH (09:15)
[2021-02-28] MEDS: BENICAR TAB 40 MG PO SCH (09:16)
[2021-02-28] MEDS: PROTONIX INJ 40 MG VIAL IVP SCH ×2 (09:16→20:10)
[2021-02-28 11:38] LABS: AMYLASE 25 Units/L (25-115); CKMB % 1.5 % (<4); CREATINE KINASE 68 Units/L (26-192); CREATINE KINASE MB < 1.0 ng/mL (0-4.0); LIPASE 134 Units/L (73-393); TROPONIN I < 0.02 ng/mL (0-1.5)
[2021-02-28] MEDS: HumuLIN R SUBCUT PRN ×2 (11:59→20:36)
[2021-02-28] MEDS: NORCO 7.5/325 MG TAB PO PRN (15:53)
[2021-02-28] MEDS ORDERED: CATAPRES TAB 0.1 MG PO PRN (17:44)
[2021-02-28] MEDS ORDERED: SNACK - Diabetic Appropriate PO SCH (20:00)
[2021-02-28] MEDS: XANAX PO PRN (20:10)
[2021-02-28] MEDS ORDERED: LIPITOR TAB 10 MG PO SCH (21:00)
[2021-03-01] MEDS: NS 1000 ML 1,000 ML IV SCH (04:33)
[2021-03-01] MEDS: NORCO 7.5/325 MG TAB PO PRN ×2 (05:41→13:43)
[2021-03-01] MEDS: PROTONIX INJ 40 MG VIAL IVP SCH (09:15)
[2021-03-01] MEDS: BENICAR TAB 40 MG PO SCH (09:15)
[2021-03-01] MEDS: ASPIRIN PO SCH (09:15)
[2021-03-01] MEDS: NORVASC TAB 5 MG PO SCH (09:15)
[2021-03-01 09:27] LABS: BASOPHILS # (AUTO) 0.1 X10^3/uL (0.0-0.1); BASOPHILS % (AUTO) 0.7 % (0.2-1.0); EOSINOPHILS # (AUTO) 0.2 x10^3/uL (0.0-0.2); EOSINOPHILS % (AUTO) 2.2 % (0.9-2.9); HEMATOCRIT 39.8 % (36.0-47.0); HEMOGLOBIN 13.7 g/dL (12.0-16.0); LYMPHOCYTES # (AUTO) 2.2 X10^3/uL (1.3-2.9); LYMPHOCYTES % (AUTO) 20.4 % (21.0-51.0); MEAN CORPUSCULAR HEMOGLOBIN 30.4 pg (27.0-34.0); MEAN CORPUSCULAR HGB CONC 34.5 g/dL (33.0-35.0); MEAN CORPUSCULAR VOLUME 88.2 fL (80.0-100.0); MEAN PLATELET VOLUME 7.9 fL (7.4-11.0); MONOCYTES # (AUTO) 0.5 x10^3/uL (0.3-0.8); MONOCYTES % (AUTO) 4.9 % (0.0-13.0); NEUTROPHILS # (AUTO) 7.7 x10^3/uL (2.2-4.8); NEUTROPHILS % (AUTO) 71.8 % (42.0-75.0); PLATELET COUNT 261 X10^3/uL (150.0-450.0); RED BLOOD COUNT 4.52 X10^6/uL (3.5-5.4); RED CELL DISTRIBUTION WIDTH 12.6 % (11.6-16.5); WHITE BLOOD COUNT 10.7 X10^3/uL (3.6-10.0)
[2021-03-01 09:38] LABS: ALANINE AMINOTRANSFERASE 68 Units/L (12-78); ALBUMIN 3.2 g/dL (3.4-5.0); ALKALINE PHOSPHATASE 80 Units/L (46-116); ASPARTATE AMINO TRANSFERASE 38 Units/L (15-37); BLOOD UREA NITROGEN 9 mg/dL (7-18); CALCIUM 8.8 mg/dL (8.5-10.1); CARBON DIOXIDE 30.4 mmol/L (21-32); CHLORIDE 101 mmol/L (98-107); COR CA(FOR HYPOALB) 9.4 mg/dL (8.5-10.1); COR NA(FOR HYPERGLY) 141 mmol/L (136-145); CREATININE 0.92 mg/dL (0.55-1.02); SODIUM 138 mmol/L (136-145); TOTAL PROTEIN 6.5 g/dL (6.4-8.2); eGFR NON BLACK RACES > 60 (>60)
[2021-03-01] MEDS ORDERED: HYDROCHLOROTHIAZIDE 25 MG TAB PO SCH (11:00)
[2021-03-01 12:08] VITALS: BP 141/84
== END 2021-03-01 14:30 | disposition home or self-care (01) ==
LOC: ER 04:10 → MED/SURG 04:10
PROVIDERS: ADMIT Internal Medicine; ATTEND Internal Medicine
DX: R11.2 Nausea with vomiting, unspecified; R07.89 Other chest pain; R06.02 Shortness of breath; F41.8 Other specified anxiety disorders; M51.36 Other intervertebral disc degeneration, lumbar region; Z20.822 Contact with and (suspected) exposure to COVID-19; I16.0 Hypertensive urgency; I10 Essential (primary) hypertension; E11.65 Type 2 diabetes mellitus with hyperglycemia; K21.00 Gastro-esophageal reflux disease with esophagitis, without bleeding

== ENCOUNTER 2022-10-08 12:08 | Observation (INO) ==
[2022-10-08] MEDS ORDERED: TUSSIONEX PENNKINETIC SUSP PO PRN (12:29)
[2022-10-08] MEDS ORDERED: APRESOLINE INJ 20 MG VIAL IVP PRN (12:29)
[2022-10-08 13:14] LABS: ABG ALLEN TEST POS; ABG BASE EXCESS 1.7 mmol/L (-2.0-2.0); ABG HCO3 25.8 mmol/L (22-26)
[2022-10-08] MEDS ORDERED: CATAPRES TAB 0.1 MG PO ONE (13:20)
[2022-10-08] MEDS: PULMICORT NEB TX 0.5 MG NEB SCH ×2 (13:21→20:05)
[2022-10-08] MEDS: ROBITUSSIN DM PO SCH ×3 (13:32→20:19)
[2022-10-08] MEDS: PROTONIX INJ 40 MG VIAL IVP SCH ×2 (13:32→20:20)
[2022-10-08] MEDS: NS 1,000 ML IV 1,000 ML IV SCH (13:33)
[2022-10-08] MEDS: LEVAQUIN PREMIX IV 500 MG 500 MG/100 ML BAG IV SCH (13:33)
[2022-10-08] MEDS: NORVASC TAB 5 MG PO SCH (13:39)
--- NOTE | 2022-10-08 13:39 | DR.H&P ---
H&P - History & Physical for Day of: H&P Date: 10/08/22 - Chief Complaint Chief Complaint: COUGH, SHORTNESS OF BREATH - History of Present Illness History of Present Illness: PT IS 46 WF, DIRECT ADMIT FROM FAILED OUTPT TREATMENT OF BRONCHITIS. PT TESTED POSITIVE FOR COVID AFTER NEW YEARS. PT HAS TAKEN A ROCEPHIN IM AND PO ZITHROMAX AND LEVAQUIN. HER OP CHEST XRAY REVEALED BRONCHITIS. PTS BP IN THE OFFICE WAS 160/110 WITH HER BLOOD SUGAR GREATER THAN 329. PT ADMITTED FOR TREATMENT AND EVALUATION OF ACUTE ILLNESS. - Past Medical History Past Medical History: Hypertension, Diabetes - Past Surgical History Surgical History: 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 - Family History Family Medical History: Diabetes Mellitus, Hypertension - Social History Does patient currently use any type of tobacco product: No Have you used tobacco products in the last 12 months: No Type of Tobacco Use: None Alcohol Use: None Drug Use: None - Medications Home Medications: No Known Drug Allergies Allergy (Unverified 02/27/21 04:29) - Review of Systems Constitutional: Weakness, Malaise Eyes: No Symptoms Reported ENT: Nose Congestion Respiratory: Cough, Shortness of Breath, Sputum, Wheezing Cardiovascular: Chest Pain, Light Headedness Gastrointestinal: Nausea, Diarrhea Genitourinary: No Symptoms Reported Musculoskeletal: Back Pain Skin: No Symptoms Reported Neurological: Other (HEADACHE ) - Physical Exam Vital Signs: Pulse Rate 87 Respiratory Rate 20 Blood Pressure [Left Arm] 176/106 Blood Pressure [Right Arm] 146/86 Blood Pressure 171/106 O2 Sat by Pulse Oximetry 94 Oriented: Normal Eyes: Blurred Vision Ear: Normal Nose: Discharge Throat: Normal Respiratory: Rhonchi Throughout, Wheezes Throughout Cardiovascular: Tachycardia. negative: Edema : Normal Auscultation: Bowel Sounds: Normal Palpation: Normal Tenderness: Normal Skin: Decreased Turgur Musculoskeletal: Back:Lumbar Psychiatric: Anxiety Affect: Anxious Speech Pattern: Clear, Appropriate - Assessment/Plan (1) Bronchitis Status: Acute Plan: ADMIT, IV ATBX THERAPY. GENTLE IV HYDRATION, BP CONTROL. CARDIAC MONITORING, STRICT I&OS, VERIFY HOME MEDICATIONS. RESP CONSULT, BLOOD AND SPUTUM CULTURES ON ADMISISON. BS CONTROL, SSI COVERAGE. EKG MONITORING, ABG ON ADMISSION, PRN SUPPLEMENTAL O2 (2) Hypertensive urgency Status: Acute (3) Diabetes Qualifiers: Diabetes mellitus type: type 2 Status: Chronic (4) SOB (shortness of breath) Status: Acute - Allergies Allergies/Adverse Reactions: Allergies Allergy/AdvReac Type Severity Reaction Status Date / Time No Known Drug Allergies Allergy Unverified 02/27/21 04:29
[2022-10-08] MEDS: HYDROCHLOROTHIAZIDE 25 MG TAB PO SCH (13:40)
[2022-10-08] MEDS: BENICAR TAB 40 MG PO SCH (13:40)
[2022-10-08 13:46] LABS: BASOPHILS % (AUTO) 0.6 % (0.2-1.0); EOSINOPHILS # (AUTO) 0.1 x10^3/uL (0.0-0.2); HEMATOCRIT 43.5 % (36.0-47.0); HEMOGLOBIN 15.2 g/dL (12.0-16.0); LYMPHOCYTES # (AUTO) 2.3 X10^3/uL (1.3-2.9); LYMPHOCYTES % (AUTO) 31.8 % (21.0-51.0); MEAN CORPUSCULAR HEMOGLOBIN 29.1 pg (27.0-34.0); MEAN CORPUSCULAR HGB CONC 34.9 g/dL (33.0-35.0); MEAN CORPUSCULAR VOLUME 83.6 fL (80.0-100.0); MEAN PLATELET VOLUME 8.3 fL (7.4-11.0); MONOCYTES # (AUTO) 0.4 x10^3/uL (0.3-0.8); MONOCYTES % (AUTO) 4.9 % (0.0-13.0); NEUTROPHILS # (AUTO) 4.4 x10^3/uL (2.2-4.8); NEUTROPHILS % (AUTO) 61.7 % (42.0-75.0); RED BLOOD COUNT 5.21 X10^6/uL (3.5-5.4); RED CELL DISTRIBUTION WIDTH 12.8 % (11.6-16.5); WHITE BLOOD COUNT 7.2 X10^3/uL (3.6-10.0)
[2022-10-08 13:49] LABS: BLOOD UREA NITROGEN 13 mg/dL (7-18); CALCIUM 8.4 mg/dL (8.5-10.1); CARBON DIOXIDE 25.8 mmol/L (21-32); CHLORIDE 100 mmol/L (98-107); COR NA(FOR HYPERGLY) 141 mmol/L (136-145); CREATININE 0.68 mg/dL (0.55-1.02); SODIUM 136 mmol/L (136-145); eGFR NON BLACK RACES > 60 (>60)
--- NOTE | 2022-10-08 13:54 | EKG ---
Test Reason : SOB Blood Pressure : */* mmHG Vent. Rate : 96 BPM Atrial Rate : 96 BPM P-R Int : 136 ms QRS Dur : 80 ms QT Int : 370 ms P-R-T Axes : 33 -3 10 degrees QTc Int : 467 ms Normal sinus rhythm Normal ECG No previous ECGs available Confirmed by Timo Mckee ([id number]) on 10/10/2022 8:39:17 AM Referred By: Confirmed By: Timo Mckee
[2022-10-08 14:13] LABS: HEMOGLOBIN A1C 10.9 %
[2022-10-08] MEDS: TYLENOL 325 MG TAB PO PRN ×2 (15:49→21:20)
[2022-10-08] MEDS ORDERED: XOPENEX 1.25 MG/3 ML NEBULE NEB ONE (16:13)
[2022-10-08 16:18] LABS: ALANINE AMINOTRANSFERASE 53 Units/L (12-78); ALBUMIN 3.5 g/dL (3.4-5.0); ALKALINE PHOSPHATASE 112 Units/L (46-116); ASPARTATE AMINO TRANSFERASE 32 Units/L (15-37); CREATINE KINASE 58 Units/L (26-192)
[2022-10-08] MEDS: XOPENEX 1.25 MG/3 ML NEBULE NEB SCH ×2 (16:23→18:27)
[2022-10-08 18:17] LABS: BILIRUBIN,URINE NEGATIVE (NEGATIVE); BLOOD/HEMOGLOBIN,URINE 1+ (NEGATIVE); GLUCOSE, URINE 4+ (NEGATIVE); KETONES,URINE NEGATIVE (NEGATIVE); LEUKOCYTE ESTERASE ,URINE NEGATIVE (NEGATIVE); NITRITES,URINE NEGATIVE (NEGATIVE); PROTEIN,URINE NEGATIVE (NEGATIVE); UROBILINOGEN,URINE NORMAL (NORMAL)
[2022-10-08 18:26] LABS: APPEARANCE,URINE SLIGHTLY HAZY (CLEAR); BACTERIA,URINE TRACE /HPF (NEGATIVE); COLOR,URINE PALE YELLOW (YELLOW); RBC,URINE 0-2 /HPF (0-3); SQUAMOUS EPITHELIAL CELL,UR FEW /HPF (NEGATIVE)
[2022-10-08] MEDS ORDERED: RESTORIL CAP 15 MG PO PRN (19:14)
[2022-10-08] MEDS ORDERED: SNACK - Diabetic Appropriate PO SCH (20:00)
[2022-10-08] MEDS: NovoLIN R (or HumuLIN R) SUBCUT PRN (20:25)
[2022-10-08] MEDS ORDERED: ZOFRAN INJ 4 MG VIAL IVP PRN (23:10)
[2022-10-09] MEDS: XOPENEX 1.25 MG/3 ML NEBULE NEB SCH ×3 (00:05→13:21)
[2022-10-09] MEDS: NS 1,000 ML IV 1,000 ML IV SCH (03:39)
[2022-10-09] MEDS: NovoLIN R (or HumuLIN R) SUBCUT PRN ×2 (05:49→11:58)
[2022-10-09] MEDS: TYLENOL 325 MG TAB PO PRN ×2 (05:55→14:59)
[2022-10-09 06:34] LABS: BASOPHILS % (AUTO) 0.5 % (0.2-1.0); EOSINOPHILS # (AUTO) 0.1 x10^3/uL (0.0-0.2); HEMATOCRIT 41.1 % (36.0-47.0); LYMPHOCYTES # (AUTO) 2.9 X10^3/uL (1.3-2.9); LYMPHOCYTES % (AUTO) 35.3 % (21.0-51.0); MEAN CORPUSCULAR HEMOGLOBIN 28.8 pg (27.0-34.0); MEAN CORPUSCULAR HGB CONC 34.2 g/dL (33.0-35.0); MEAN CORPUSCULAR VOLUME 84.4 fL (80.0-100.0); MEAN PLATELET VOLUME 8.4 fL (7.4-11.0); MONOCYTES # (AUTO) 0.5 x10^3/uL (0.3-0.8); MONOCYTES % (AUTO) 6.1 % (0.0-13.0); NEUTROPHILS # (AUTO) 4.7 x10^3/uL (2.2-4.8); NEUTROPHILS % (AUTO) 57.1 % (42.0-75.0); RED BLOOD COUNT 4.87 X10^6/uL (3.5-5.4); RED CELL DISTRIBUTION WIDTH 12.8 % (11.6-16.5); WHITE BLOOD COUNT 8.1 X10^3/uL (3.6-10.0)
[2022-10-09 07:35] LABS: BLOOD UREA NITROGEN 11 mg/dL (7-18); CALCIUM 8.2 mg/dL (8.5-10.1); CARBON DIOXIDE 26.7 mmol/L (21-32); CHLORIDE 98 mmol/L (98-107); COR NA(FOR HYPERGLY) 139 mmol/L (136-145); CREATININE 0.78 mg/dL (0.55-1.02); SODIUM 135 mmol/L (136-145); eGFR NON BLACK RACES > 60 (>60)
[2022-10-09 08:21] LABS: ALANINE AMINOTRANSFERASE 52 Units/L (12-78); ALBUMIN 3.4 g/dL (3.4-5.0); ALKALINE PHOSPHATASE 105 Units/L (46-116); ASPARTATE AMINO TRANSFERASE 27 Units/L (15-37); TOTAL PROTEIN 6.6 g/dL (6.4-8.2)
[2022-10-09] MEDS: PULMICORT NEB TX 0.5 MG NEB SCH (08:28)
[2022-10-09] MEDS ORDERED: TOPROL XL PO SCH (09:00)
[2022-10-09] MEDS ORDERED: OLMESARTAN AMLODIPIN HCTHIAZID PO SCH (09:00)
[2022-10-09] MEDS: ROBITUSSIN DM PO SCH ×2 (09:20→14:51)
[2022-10-09] MEDS: PROTONIX INJ 40 MG VIAL IVP SCH (09:20)
[2022-10-09] MEDS: BENICAR TAB 40 MG PO SCH ×2 (09:21→11:35)
[2022-10-09] MEDS: HYDROCHLOROTHIAZIDE 25 MG TAB PO SCH (09:21)
[2022-10-09] MEDS: LEVAQUIN PREMIX IV 500 MG 500 MG/100 ML BAG IV SCH (09:25)
[2022-10-09] MEDS: SOLU-Medrol 40 MG VIAL IVP SCH ×2 (09:33→14:51)
--- NOTE | 2022-10-09 10:40 | RAD ---
CHEST, 1 VIEWHISTORY: SOB, PNEUMONIAStudy: Single view of the chest.Comparison:10/04/2022Findings:The cardiomediastinal silhouette is normal.No focal consolidations, pleural effusions or pneumothorax. Osseous structures demonstrate no acute abnormality.IMPRESSION:1. No acute cardiopulmonary process.Electronically signed by: BAUTISTA PEREYRA (Oct 09, 2022 10:39:26)
[2022-10-09] MEDS: NORVASC TAB 5 MG PO SCH (11:35)
[2022-10-09 13:03] VITALS: BP 137/85
[2022-10-09] MEDS ORDERED: JANUVIA PO SCH (14:00)
[2022-10-09] MEDS ORDERED: SNACK - Diabetic Appropriate PO SCH (20:00)
== END 2022-10-09 15:20 | disposition home or self-care (01) ==
LOC: MED/SURG
PROVIDERS: ADMIT Internal Medicine; ATTEND Internal Medicine
DX: R06.02 Shortness of breath; E11.65 Type 2 diabetes mellitus with hyperglycemia; I10 Essential (primary) hypertension; K21.9 Gastro-esophageal reflux disease without esophagitis; J20.8 Acute bronchitis due to other specified organisms; I16.0 Hypertensive urgency

== ENCOUNTER 2024-06-21 11:20 | Observation (INO) ==
[2024-06-21 14:04] VITALS: BMI 29.2
[2024-06-21] MEDS: PROTONIX INJ 40 MG VIAL IVP SCH (14:40)
[2024-06-21] MEDS: ALPRAZOLAM ODT PO PRN (14:40)
[2024-06-21] MEDS: NS 1,000 ML IV 1,000 ML IV SCH (14:40)
[2024-06-21] MEDS ORDERED: TYLENOL 325 MG TAB PO PRN (14:50)
[2024-06-21] MEDS: NORCO 5/325 MG TAB PO PRN (15:05)
[2024-06-21 15:12] LABS: BASOPHILS # (AUTO) 0.1 X10^3/uL (0.0-0.1); BASOPHILS % (AUTO) 0.7 % (0.2-1.0); EOSINOPHILS % (AUTO) 0.4 % (0.9-2.9); HEMATOCRIT 45.4 % (36.0-47.0); HEMOGLOBIN 14.9 g/dL (12.0-16.0); LYMPHOCYTES # (AUTO) 2.5 X10^3/uL (1.3-2.9); LYMPHOCYTES % (AUTO) 22.2 % (21.0-51.0); MEAN CORPUSCULAR HEMOGLOBIN 29.3 pg (27.0-34.0); MEAN CORPUSCULAR HGB CONC 32.8 g/dL (33.0-35.0); MEAN CORPUSCULAR VOLUME 89.3 fL (80.0-100.0); MEAN PLATELET VOLUME 7.9 fL (7.4-11.0); MONOCYTES # (AUTO) 0.7 x10^3/uL (0.3-0.8); NEUTROPHILS # (AUTO) 8.1 x10^3/uL (2.2-4.8); NEUTROPHILS % (AUTO) 70.7 % (42.0-75.0); PLATELET COUNT 326 X10^3/uL (150.0-450.0); RED BLOOD COUNT 5.08 X10^6/uL (3.5-5.4); RED CELL DISTRIBUTION WIDTH 13.1 % (11.6-16.5); WHITE BLOOD COUNT 11.4 X10^3/uL (3.6-10.0)
[2024-06-21] MEDS: ZOFRAN INJ 4 MG VIAL IVP PRN (15:13)
[2024-06-21 15:23] LABS: ALANINE AMINOTRANSFERASE 25 Units/L (12-78); ALBUMIN 3.9 g/dL (3.4-5.0); ALKALINE PHOSPHATASE 71 Units/L (46-116); AMYLASE 22 Units/L (25-115); ASPARTATE AMINO TRANSFERASE 17 Units/L (15-37); BLOOD UREA NITROGEN 11 mg/dL (7-18); CALCIUM 8.9 mg/dL (8.5-10.1); CARBON DIOXIDE 28.1 mmol/L (21-32); CHLORIDE 103 mmol/L (98-107); GLUCOSE 81 mg/dL (65-99); LIPASE 24 Units/L (16-77); POTASSIUM 3.9 mmol/L (3.5-5.1); SODIUM 138 mmol/L (136-145); TOTAL PROTEIN 7.4 g/dL (6.4-8.2); eGFR NON BLACK RACES > 60 (>60)
--- NOTE | 2024-06-21 18:25 | DR.H&P ---
H&P History & Physical for Day of: H&P Date: 06/21/24 Chief Complaint Chief Complaint: ABDOMINAL PAIN, N/V/D DIARRHEA, WEAKNESS History of Present Illness History of Present Illness: PT IS 48 WF, DIRECT ADMIT FROM DR BEE OFFICE WITH INTRACTABLE ABDOMINAL PAIN, NVD SINCE LAST . PT REPORTS SHE HAS GERD AND ESOPHAGITIS, HAS EGD PER DR ARMENTA WITHIN PAST 6MOS, TAKING PROTONIX, PEPCID AND CARAFATE FOR CONTROL OF SYMTOMS. PT REPORTS ABRUPT ONSET OF "FOOD POISON" SYMPTOMS PERSISTING SINCE . PT WAS SEEN IN THE ER ON FRIDAY AND REPORTS NO LABS OR XRAYS WERE DONE. PT CO HEADACHE AND DIZZINESS. PT HAS NOT TAKEN BP MEDICATION OR DIABETIC MEDICATION THIS MORNING. PT REPORTS SHE IS NOT TAKING GLP1 FOR SEVERAL MONTHS. PT ADMITTED FOR IV HYDRATION, IV ATBX AND CT SCAN OF ABD/PELVIS. PLAN TO CONSULT DR ARMENTA FOR EVALUATION OF ESOPHAGITIS, GASTROPARESIS SYMPTOMS. Past Medical History Past Medical History: Diabetes and Hypertension Past Surgical History Surgical History: 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, Ortho Surgery and Other Family History Family Medical History: Diabetes Mellitus and Hypertension Social History Does patient currently use any type of tobacco product: No Type of Tobacco Use: None Does any household member use tobacco: No Alcohol Use: None Drug Use: None Medications Home Medications: Home Medications Medication Instructions Recorded Confirmed Type alprazolam 1 mg tablet 1 mg PO DAILY PRN 02/27/21 06/21/24 History amlodipine 5 mg-olmesartan 20 mg 1 tab PO QDAY 06/21/24 06/21/24 History tablet empagliflozin 25 mg tablet 25 mg PO QDAY 06/21/24 06/21/24 History (Jardiance) escitalopram oxalate 10 mg tablet 10 mg PO HS 06/21/24 06/21/24 History famotidine 40 mg tablet 40 mg PO BID 06/21/24 06/21/24 History metoclopramide HCl 5 mg tablet 5 mg PO ACHS 06/21/24 06/21/24 History pantoprazole 40 mg tablet,delayed 40 mg PO BID 06/21/24 06/21/24 History release sucralfate 1 gram tablet 1 g PO QID 06/21/24 06/21/24 History tirzepatide 2.5 mg/0.5 mL See Rx Instructions .Route .COMPLEX 06/21/24 06/21/24 History subcutaneous pen injector (Mounjaro) Allergies Allergies Allergy/AdvReac Type Severity Reaction Status Date / Time No Known Drug Allergies Allergy Verified 07/03/23 00:40 Labs 06/21/24 14:45 06/21/24 14:45 Labs: Laboratory WBC 11.4 X10^3/uL (3.6-10.0) H 06/21/24 14:45 RBC 5.08 X10^6/uL (3.5-5.4) 06/21/24 14:45 Hgb 14.9 g/dL (12.0-16.0) 06/21/24 14:45 Hct 45.4 % (36.0-47.0) 06/21/24 14:45 MCV 89.3 fL (80.0-100.0) 06/21/24 14:45 MCH 29.3 pg (27.0-34.0) 06/21/24 14:45 MCHC 32.8 g/dL (33.0-35.0) L 06/21/24 14:45 RDW 13.1 % (11.6-16.5) 06/21/24 14:45 Plt Count 326 X10^3/uL (150.0-450.0) 06/21/24 14:45 MPV 7.9 fL (7.4-11.0) 06/21/24 14:45 Neut % (Auto) 70.7 % (42.0-75.0) 06/21/24 14:45 Lymph % (Auto) 22.2 % (21.0-51.0) 06/21/24 14:45 [place] % (Auto) 6.0 % (0.0-13.0) 06/21/24 14:45 Eos % (Auto) 0.4 % (0.9-2.9) L 06/21/24 14:45 Baso % (Auto) 0.7 % (0.2-1.0) 06/21/24 14:45 Neut # (Auto) 8.1 x10^3/uL (2.2-4.8) H 06/21/24 14:45 Lymph # (Auto) 2.5 X10^3/uL (1.3-2.9) 06/21/24 14:45 [place] # (Auto) 0.7 x10^3/uL (0.3-0.8) 06/21/24 14:45 Eos # (Auto) 0.0 x10^3/uL (0.0-0.2) 06/21/24 14:45 Baso # (Auto) 0.1 X10^3/uL (0.0-0.1) 06/21/24 14:45 Absolute Nucleated RBC 0.1 /100WBC 06/21/24 14:45 Sodium 138 mmol/L (136-145) 06/21/24 14:45 Corrected Sodium TNP 06/21/24 14:45 Potassium 3.9 mmol/L (3.5-5.1) 06/21/24 14:45 Chloride 103 mmol/L (98-107) 06/21/24 14:45 Carbon Dioxide 28.1 mmol/L (21-32) 06/21/24 14:45 BUN 11 mg/dL (7-18) 06/21/24 14:45 Creatinine 0.80 mg/dL (0.55-1.02) 06/21/24 14:45 Est GFR (MDRD) Af Amer > 60 (>60) 06/21/24 14:45 Est GFR (MDRD) Non-Af > 60 (>60) 06/21/24 14:45 Glucose 81 mg/dL (65-99) 06/21/24 14:45 POC Glucose (mg/dL) 93 mg/dL (65-99) 06/21/24 16:50 Calcium 8.9 mg/dL (8.5-10.1) 06/21/24 14:45 Corrected Calcium TNP 06/21/24 14:45 Total Bilirubin 0.70 mg/dL (0.2-1.0) 06/21/24 14:45 AST 17 Units/L (15-37) 06/21/24 14:45 ALT 25 Units/L (12-78) 06/21/24 14:45 Alkaline Phosphatase 71 Units/L (46-116) 06/21/24 14:45 Total Protein 7.4 g/dL (6.4-8.2) 06/21/24 14:45 Albumin 3.9 g/dL (3.4-5.0) 06/21/24 14:45 Globulin 3.5 g/dL (2.5-4.5) 06/21/24 14:45 Albumin/Globulin Ratio 1.1 Ratio (1.1-2.1) 06/21/24 14:45 Amylase 22 Units/L (25-115) L 06/21/24 14:45 Lipase 24 Units/L (16-77) 06/21/24 14:45 Review of Systems Constitutional: Chills, Sweats and Weakness Eyes: No Symptoms Reported ENT: No Symptoms Reported Respiratory: SOB with Excertion Cardiovascular: Palpitations Gastrointestinal: Nausea, Vomiting, Abdominal Pain and Diarrhea Genitourinary: No Symptoms Reported Musculoskeletal: Back Pain Skin: No Symptoms Reported Neurological: Other (HEADACHE) Physical Exam Vital Signs: Vital Signs Temperature 97.6 F Temperature 98.2 F Pulse Rate [Left Radial] 74 Pulse Rate [Left Radial] 81 Respiratory Rate 18 Respiratory Rate 18 Respiratory Rate 20 Respiratory Rate 19 Blood Pressure [Left Arm] 122/82 Blood Pressure [Left Arm] 128/84 O2 Sat by Pulse Oximetry 96 O2 Sat by Pulse Oximetry 97 Oriented: Normal Eyes: Normal Ear: Normal Nose: Discharge Throat: Red Respiratory: RLL Diminished and LLL Diminished Cardiovascular: Tachycardia : Normal Auscultation: Bowel Sounds: Increased Tenderness: LUQ, LLQ and Epigastric Skin: Decreased Turgur Musculoskeletal: Back:Lumbar Psychiatric: Anxiety Affect: Anxious Speech Pattern: Clear and Appropriate Assessment/Plan (1) Colitis: Narrative Support Text: ADMIT, IV HYDRATION IV CIPRO, STOOL STUDIES CT ABD PELVIS WITH CONTRAST PROTONIX IV, PRN PAIN AND NAUSEA CONTROL Status: Acute (2) Gastroenteritis: Status: Acute (3) GERD with esophagitis: Status: Acute (4) Hypertension: Status: Acute (5) Anxiety: Status: Chronic (6) Diabetes: Qualifiers: Diabetes mellitus type: type 2 Status: Chronic
[2024-06-21] MEDS: PHENERGAN INJ 25 MG IM PRN (19:20)
[2024-06-21] MEDS: CIPRO IV 400 MG PREMIX* 400 MG/200 ML IV.SOLN. IV SCH (20:33)
[2024-06-21] MEDS: COLACE CAP 100 MG PO SCH (20:33)
[2024-06-21] MEDS: REGLAN TAB 5 MG PO SCH (20:33)
[2024-06-21 23:31] VITALS: RESP 18
[2024-06-22 05:38] LABS: BASOPHILS # (AUTO) 0.1 X10^3/uL (0.0-0.1); BASOPHILS % (AUTO) 0.9 % (0.2-1.0); EOSINOPHILS # (AUTO) 0.1 x10^3/uL (0.0-0.2); EOSINOPHILS % (AUTO) 1.3 % (0.9-2.9); HEMATOCRIT 40.1 % (36.0-47.0); HEMOGLOBIN 13.4 g/dL (12.0-16.0); LYMPHOCYTES # (AUTO) 2.6 X10^3/uL (1.3-2.9); LYMPHOCYTES % (AUTO) 26.4 % (21.0-51.0); MEAN CORPUSCULAR HEMOGLOBIN 29.9 pg (27.0-34.0); MEAN CORPUSCULAR HGB CONC 33.5 g/dL (33.0-35.0); MEAN CORPUSCULAR VOLUME 89.2 fL (80.0-100.0); MEAN PLATELET VOLUME 7.8 fL (7.4-11.0); MONOCYTES # (AUTO) 0.7 x10^3/uL (0.3-0.8); MONOCYTES % (AUTO) 6.9 % (0.0-13.0); NEUTROPHILS # (AUTO) 6.4 x10^3/uL (2.2-4.8); NEUTROPHILS % (AUTO) 64.5 % (42.0-75.0); PLATELET COUNT 277 X10^3/uL (150.0-450.0); RED CELL DISTRIBUTION WIDTH 12.7 % (11.6-16.5)
[2024-06-22 05:49] LABS: ALANINE AMINOTRANSFERASE 22 Units/L (12-78); ALBUMIN 3.2 g/dL (3.4-5.0); ALKALINE PHOSPHATASE 59 Units/L (46-116); ASPARTATE AMINO TRANSFERASE 13 Units/L (15-37); BLOOD UREA NITROGEN 9 mg/dL (7-18); CALCIUM 8.3 mg/dL (8.5-10.1); CARBON DIOXIDE 29.2 mmol/L (21-32); CHLORIDE 105 mmol/L (98-107); COR CA(FOR HYPOALB) 8.9 mg/dL (8.5-10.1); CREATININE 0.83 mg/dL (0.55-1.02); GLUCOSE 86 mg/dL (65-99); MAGNESIUM 1.6 mg/dL (2.0-2.9); POTASSIUM 3.5 mmol/L (3.5-5.1); SODIUM 139 mmol/L (136-145); TOTAL PROTEIN 6.1 g/dL (6.4-8.2); eGFR NON BLACK RACES > 60 (>60)
[2024-06-22] MEDS ORDERED: CONSULT PHARMACY - POTASSIUM & MAGNESIUM XX SCH (08:00)
[2024-06-22] MEDS ORDERED: AMLODIPINE OLMESARTAN PO SCH (09:00)
[2024-06-22] MEDS: NORVASC TAB 5 MG PO SCH (09:06)
[2024-06-22] MEDS: FARXIGA PO SCH (09:06)
[2024-06-22] MEDS: BENICAR PO SCH (09:07)
--- NOTE | 2024-06-22 11:45 | DR.CONSULT ---
Consult - Consultation for Day of: Date: 06/22/24 (GI) - Chief Complaint Chief Complaint: Patient is a 48 y/o female who is referred for esophagitis. Patient reports nausea, vomiting, and diarrhea that started last after eating a ham sandwich. Reports N/V/D have resolved. Patient currently has complaints of upper abdominal pain and feeling full of "gas". Also reports poor appetite, and only being able to eat a few bites per meal. Last EGD was done 03/04/24, and showed esophagitis, erosive gastritis, pathology negative. Last colonoscopy was done 02/26/24, and showed 0.4cm hyperplastic polyp, internal hemorrhoids. She is on Protonix at home. Pt was a DIRECT ADMIT FROM DR BEE OFFICE WITH INTRACTABLE ABDOMINAL PAIN, NVD SINCE LAST . PT REPORTS SHE HAS GERD AND ESOPHAGITIS, HAS EGD PER DR LAGOS WITHIN PAST 6MOS, TAKING PROTONIX, PEPCID AND CARAFATE FOR CONTROL OF SYMTOMS. PT REPORTS ABRUPT ONSET OF "FOOD POISON" SYMPTOMS PERSISTING SINCE . PT WAS SEEN IN THE ER ON FRIDAY AND REPORTS NO LABS OR XRAYS WERE DONE. PT CO HEADACHE AND DIZZINESS. PT HAS NOT TAKEN BP MEDICATION OR DIABETIC MEDICATION THIS MORNING. PT REPORTS SHE IS NOT TAKING GLP1 FOR SEVERAL MONTHS. PT ADMITTED FOR IV HYDRATION, IV ATBX AND CT SCAN OF ABD/PELVIS. PLAN TO CONSULT DR LAGOS FOR EVALUATION OF ESOPHAGITIS, GASTROPARESIS SYMPTOMS. - Past Medical History Past Medical History: Hypertension, Diabetes - Past Surgical History Surgical History: 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, Ortho Surgery, Other - Family History Family Medical History: Diabetes Mellitus, Hypertension - Social History Does patient currently use any type of tobacco product: No Type of Tobacco Use: None Does any household member use tobacco: No Alcohol Use: None Drug Use: None - Medications Home Medications: No Known Drug Allergies Allergy (Verified 07/03/23 00:40) CONTINUE taking the following medications amlodipine 5 mg-olmesartan 20 mg tablet 1 tab PO QDAY 06/21/24 [History] empagliflozin 25 mg tablet (Jardiance) 25 mg PO QDAY 06/21/24 [History] escitalopram oxalate 10 mg tablet 10 mg PO HS 06/21/24 [History] famotidine 40 mg tablet 40 mg PO BID 06/21/24 [History] metoclopramide HCl 5 mg tablet 5 mg PO ACHS 06/21/24 [History] pantoprazole 40 mg tablet,delayed release 40 mg PO BID 06/21/24 [History] sucralfate 1 gram tablet 1 g PO QID 06/21/24 [History] tirzepatide 2.5 mg/0.5 mL subcutaneous pen injector (Yaneth) See Rx Instructions .Route .COMPLEX 06/21/24 [History] - Review of Systems Constitutional: See HPI. denies: No Symptoms Reported, Fever, Chills, Sweats, Weakness, Malaise, Other Eyes: No Symptoms Reported. denies: See HPI, Pain, Vision Change, Conjunctivae Inflammation, Eyelid Inflammation, Redness, Other ENT: No Symptoms Reported. denies: See HPI, Ear Pain, Ear Discharge, Nose Pain, Nose Discharge, Nose Congestion, Mouth Pain, Mouth Swelling, Throat Pain, T hroat Swelling, Other Respiratory: No Symptoms Reported. denies: See HPI, Cough, Dry, Shortness of Breath, Hemoptysis, SOB with Excertion, Pleuritic Pain, Sputum, Wheezing, Other Cardiovascular: No Symptoms Reported. denies: Chest Pain, See HPI, Palpitations, Orthopnea, Paroxysmal Noc. Dyspnea, Edema, Light Headedness, Other Gastrointestinal: See HPI, Nausea, Vomiting, Abdominal Pain, Diarrhea. denies: No Symptoms Reported, Constipation, Melena, Hematochezia, Other Genitourinary: No Symptoms Reported. denies: See HPI, Dysuria, Frequency, Incontinence, Hematuria, Retention, Other Musculoskeletal: No Symptoms Reported. denies: See HPI, Shoulder Pain, Arm Pain, Back Pain, Hand Pain, Leg Pain, Foot Pain, Neck Pain, Other Skin: No Symptoms Reported. denies: See HPI, Rash, Lesions, Jaundice, Bruising, Wound, Ecchymosis, Other Neurological: No Symptoms Reported. denies: See HPI, Weakness, Numbness, Incoordination, Change in Speech, Confusion, Seizures, Other - Physical Exam Vital Signs: Vital Signs Temperature 97.8 F Temperature 98.1 F Pulse Rate [Left Radial] 66 Pulse Rate [Left Radial] 60 Respiratory Rate 18 Respiratory Rate 18 Blood Pressure [Left Arm] 104/59 Blood Pressure [Left Arm] 96/52 O2 Sat by Pulse Oximetry 97 O2 Sat by Pulse Oximetry 96 Oriented: Normal. negative: Time, Person, Place, Not Oriented, Unable to test, Other Eyes: Normal. negative: Blurred Vision, Diplopia, Discharge, Pain, Redness, Photophobia, Other Ear: negative: Normal, Right, Left, Swelling, Ecchymosis, Hemotypanum, Abrasion, Laceration Nose: negative: Normal, Injected, Discharge, Blood, Other Throat: negative: Normal, Tonsillar Hypertrophy, Red, Exudate, Dry, Other Respiratory: Clear Throughout. negative: Diminished Throughout, Rhonchi Throughout, Rales Throughout, Wheezes Throughout, RUL Clear, RML Clear, RLL Clear, STACEY Clear, LML Clear, LLL Clear, RUL Diminished, RML Diminished, RLL Diminished, STACEY Diminished, LML Diminished, LLL Diminished, RUL Absent, RML Absent, RLL Absent, STACEY Absent, LML Absent, LLL Absent, RUL Rhonchi, RML Rhonchi, RLL Rhonchi, STACEY Rhonchi, LML Rhonchi, LLL Rhonchi, RUL Insp. Wheeze, RML Insp. Wheeze, RLL Insp. Wheeze, STACEY Insp.Wheeze, LML Insp.Wheeze, LLL Insp.Wheeze, RUL Exp. Wheeze, RML Exp. Wheeze, RLL Exp. Wheeze, STACEY Exp. Wheeze, LML Exp. Wheeze, LLL Exp. Wheeze, RUL Rales, RML Rales, RLL Rales, STACEY Rales, LML Rales, LLL Rales, RUL Rub, RML Rub, RLL Rub, STACEY Rub, LML Rub, LLL Rub, RUL Squeak, RML Squeak, RLL Squeak, STACEY Squeak, LML Squeak, LLL Squeak Cardiovascular: Normal. negative: Tachycardia, Bradycardia, Irregular, S3, S4, Systolic, Diastolic, Murmur, Edema, Other : negative: Normal, Dysuria, Hematuria, Frequency, Discharge, Testicular Pain, Bleeding, , Other Auscultation: Bowel Sounds: Normal. negative: Bruit, Absent, Increased, Decreased, High Pitched, Other Palpation: negative: Normal, Spleen Enlarged, Liver Enlarged, Mass Pulsatile, Other Tenderness: Diffuse (Mild). negative: Normal, RUQ, RLQ, LUQ, LLQ, Epigastric, Periumbilical, Suprapubic, Mild, Moderate, Severe, Rebound, Guarding, Rigidity, Other Skin: Normal. negative: Decreased Turgur, Rash, Papular, Macular, Maculopapular, Vesicular, Pustular, Petechial, Red, Tender, Hot, Diaphoresis, Wound, Bruising, Ecchymosis, Other Musculoskeletal: Normal. negative: Right, Left, Shoulder, Clavicle, Arm, Elbow, Forearm, Wrist, Hand, Hip, Thigh, Knee, Leg, Ankle, Foot, Back:Thoracic, Back:Lumbar, Back:Midline, Back:Paraspinous, Pelvis, Swelling, Tender, Deformity, Pulse Deficit, Motor Deficit, Sensory Deficit, Instability, Crepitance Psychiatric: Normal. negative: Anxiety, Depression, Agitation, Other Mood Description: Calm, Appropriate. negative: Angry, Apathetic, Depressed, Fearful, Flat, Happy, Hostile, Sad, Suspicious, Withdrawn, Anxious, Labile Affect: Normal. negative: Angry, Anxious, Depressed, Flat, Hysterical, Quiet, Violent Speech Pattern: Clear, Appropriate. negative: Unclear, Inappropriate, Delayed, Slurred, Excessive, Aphasic, Artificially Ventilated, Trach(not ventilated), Unable to speak - Plan Plan: Assessment. 1. Acute gastroenteritis. 2. Nausea, vomiting, diarrhea, secondary to above. 3. Upper abdominal pain. 4. GERD. 5. H/O hyperplastic colon polyp. Plan: Continue IV hydration, IV Protonix, IV Zofran PRN, Reglan. If diarrhea returns, will order stool studies. [place] advance diet as tolerated. Abd/pelvis CT ordered, follow up report. Plan D/W Dr. Lagos - Allergies Allergies/Adverse Reactions: Allergies Allergy/AdvReac Type Severity Reaction Status Date / Time No Known Drug Allergies Allergy Verified 07/03/23 00:40
[2024-06-22] MEDS: NS + KCL 20 MEQ/L 1,000 ML with MAGNESIUM SULFATE 50% INJ VIAL 1 G IV SCH (14:08)
--- NOTE | 2024-06-22 16:13 | CT ---
EXAM:ABDCMEN/PELVIS WITH CONHISTORY:LLQ PAIN, FEVER, COLITIS;COMPARISON:None available.TECHNIQUE:Multiple axial images of the abdomen and pelvis were obtained with IV contrast. Oral contrast was administered. Dose reduction techniques including Automated Exposure Control (AEC) and adjustment of mA and kV were utilized.FINDINGS:Lung bases are unremarkable. No free air.Bones show no lytic or destructive process. Degenerative changes lumbar spine. Mild bilateral hip osteoarthritis.Spleen, adrenal glands, pancreas unremarkable. Liver unremarkable. Prior cholecystectomy. Kidneys appear normal. No hydronephrosis. No ureteral calculi with some phleboliths in the lower pelvis.Abdominal aorta normal caliber, no adenopathy.No adnexal mass, crenated right ovary follicle. Suggestion of left-sided uterine fibroid 17 mm, not well evaluated on this study. Bladder unremarkable. Trace pelvic free fluid.Nonobstructive bowel. No bowel inflammatory features. Normal appendix. Presumed injection sites left and right buttocks with a few gas bubbles left buttocks presumably from recent injection, still request correlation.IMPRESSION:1. Nonobstructive bowel, no bowel inflammatory features.2. Trace pelvic free fluid, crenated right ovary follicle. Suggestion of 17 mm left-sided uterine fibroid, please correlate.THIS IS AN ELECTRONICALLY VERIFIED FINAL REPORT06/22/2024 4:09 PM - Electronically signed by Rogers Suarez MD
[2024-06-22 16:40] VITALS: BP 124/77; PULSE 72; TEMP 98.6; O2SAT 98
[2024-06-22] MEDS: OMNIPAQUE 350 mg/mL 100 mL BTL 100 ML ONE (18:13)
[2024-06-22] MEDS: READI-CAT 2 ONE (18:13)
== END 2024-06-22 18:33 | disposition home or self-care (01) ==
LOC: MED/SURG
PROVIDERS: ADMIT Internal Medicine; ATTEND Internal Medicine
DX: R42 Dizziness and giddiness; Z86.010 Personal history of colon polyps; K52.89 Other specified noninfective gastroenteritis and colitis; E11.65 Type 2 diabetes mellitus with hyperglycemia; R51.9 Headache, unspecified; E86.0 Dehydration; K31.84 Gastroparesis; F41.8 Other specified anxiety disorders; E83.42 Hypomagnesemia; K21.00 Gastro-esophageal reflux disease with esophagitis, without bleeding